=== PATIENT | female | born 1975 | race Caucasian/White ===

== ENCOUNTER 2017-06-30 16:33 | Inpatient (IN) | payer MEDICARE, MEDICAID ==
[2017-06-30] MEDS ORDERED: Ondansetron INJ* 2 MG/ML VIAL IV ONE (18:01)
[2017-06-30 18:26] LABS: Hematocrit 35 % (35-47); Hemoglobin 11.1 g/dl (12.0-16.0); Mean Corpuscular HGB Conc 32 g/dl (31-36); Mean Corpuscular Hemoglobin 24 pg (27-31); Mean Corpuscular Volume 77 fL (80-97); Mean Platelet Volume 9 um3 (7.4-10.4); Red Blood Count 4.58 10^6/ul (4.0-5.4); Red Cell Distribution Width 17 % (10.5-15); White Blood Count 13.1 10^3/ul (3.5-10.8)
[2017-06-30] MEDS: NS 0.9% 1000 ML* 2,000 ML IV ONE ×2 (18:40→20:59)
[2017-06-30 18:42] LABS: ALT 67 U/L (7-52); AST 77 U/L (13-39); Albumin 4.4 g/dL (3.2-5.2); Alkaline Phosphatase 148 U/L (34-104); BUN/Creatinine Ratio 14.4 (8-20); Blood Urea Nitrogen 29 mg/dL (6-24); CO2 Carbon Dioxide 25 mmol/L (22-32); Calcium 10.8 mg/dL (8.6-10.3); Chloride 97 mmol/L (101-111); EGFR African American 34.9 (>60); EGFR Non-African American 27.1 (>60); Globulin 3.6 g/dL (2-4); Glucose 119 mg/dL (70-100); Lipase 276 U/L (11.0-82.0); Magnesium 2.2 mg/dL (1.9-2.7); Sodium 130 mmol/L (133-145)
[2017-06-30 18:43] LABS: Anion Gap 8 mmol/L (2-11); Potassium 2.6 mmol/L (3.5-5.0)
[2017-06-30] MEDS ORDERED: KCL 20 MEQ/100 ML IVPREMIX* 20 MEQ/100 ML BAG IV ONE (18:51)
[2017-06-30] MEDS ORDERED: Potassium Chlor TAB* 20 MEQ TAB.ER PO ONE (18:52)
--- NOTE | 2017-06-30 19:47 | ED ---
Complex/Multi-Sys Presentation - HPI Summary HPI Summary: 42F w/ PMH of bipolar presents with increase confusion and nausea for past 5 days. She states she feels like she has the flu. She is unsure if has headache. She denies any cough, chest pain, or SOB. She has LLQ pain. She denies any dysuria, hematuria, flank pain, urgency, or frequency. She states thoughts are coming to her slower. She states that she sees occasionally floaters in her eye. She has no history of migraines. She denies any fever. Her boyfriend called an ambulance because she has not been acting right. She states she had couple episode of vomiting and diarrhea. She is on lithium. - History Of Current Complaint Chief Complaint: EDGeneral Time Seen by Provider: 06/30/17 16:46 - Allergies/Home Medications Allergies/Adverse Reactions: Allergies Allergy/AdvReac Type Severity Reaction Status Date / Time environmental allergy Allergy Intermediate Eyes Uncoded 02/12/16 15:39 Itchy/Swollen/Red/Watery PMH/Surg Hx/FS Hx/Imm Hx Endocrine/Hematology History: Denies: Hx Diabetes, Hx Thyroid Disease Cardiovascular History: Denies: Hx Hypertension Respiratory History: Denies: Hx Asthma, Hx Chronic Obstructive Pulmonary Disease (COPD) GI History: Denies: Hx Ulcer Musculoskeletal History: Denies: Hx Scoliosis Neurological History: Denies: Hx Headaches Psychiatric History: Reports: Hx Anxiety, Hx Inpatient Treatment, Hx Community Mental Health Tx, Hx Bipolar Disorder Denies: Hx Eating Disorder, Hx of Violent Episodes Against Others - Surgical History Surgery Procedure, Year, and Place: TUBAL LIGATION. CHOLECYSTECTOMY - Immunization History Date of Tetanus Vaccine: UTD per pt Infectious Disease History: No Infectious Disease History: Denies: Hx Clostridium Difficile, Hx Hepatitis, Hx Human Immunodeficiency Virus (HIV), Hx of Known/Suspected MRSA, Hx Shingles, Hx Tuberculosis, Hx Known/ Suspected VRE, Hx Known/Suspected VRSA, History Other Infectious Disease, Traveled Outside the [place] in Last 30 Days - Family History Known Family History: Positive: Hypertension - Social History Alcohol Use: None Substance Use Type: Reports: None Smoking Status (MU): Former Smoker Have You Smoked in the Last Year: No Review of Systems Negative: Fever Negative: Chest Pain Negative: Shortness Of Breath, Cough Positive: Abdominal Pain, Vomiting, Diarrhea, Nausea All Other Systems Reviewed And Are Negative: Yes Physical Exam Triage Information Reviewed: Yes Vital Signs On Initial Exam: Initial Vitals Temp Pulse Resp BP Pulse Ox 98.6 F 93 14 136/84 98 06/30/17 16:41 06/30/17 16:41 06/30/17 16:41 06/30/17 16:41 06/30/17 16:41 Vital Signs Reviewed: Yes Appearance: Positive: Ill-Appearing Skin: Positive: Warm, Dry Head/Face: Positive: Normal Head/Face Inspection Eyes: Positive: Normal, EOMI, MADONNA, Conjunctiva Clear ENT: Positive: Pharynx normal, TMs normal, Other - dry mous Respiratory/Lung Sounds: Positive: Clear to Auscultation, Breath Sounds Present Cardiovascular: Positive: Normal, RRR Abdomen Description: Positive: Soft, Other: - tenderness in LLQ Bowel Sounds: Positive: Present Psychiatric: Positive: Other - flat affect Diagnostics - Vital Signs Vital Signs Temp Pulse Resp BP Pulse Ox 06/30/17 18:50 85 14 99 06/30/17 18:45 83 14 99 06/30/17 18:40 84 17 98 06/30/17 18:35 83 18 98 06/30/17 18:30 83 1 97 06/30/17 18:00 87 123/77 100 06/30/17 17:30 83 119/68 97 06/30/17 17:05 88 5 98 06/30/17 17:04 130/72 06/30/17 16:46 92 13 98 06/30/17 16:45 92 8 98 06/30/17 16:43 136/81 06/30/17 16:41 98.6 F 93 14 136/84 98 - Laboratory Lab Results: Lab Results 06/30/17 06/30/17 Range/Units 18:13 18:13 WBC 13.1 H (3.5-10.8) 10^3/ul RBC 4.58 (4.0-5.4) 10^6/ul Hgb 11.1 L (12.0-16.0) g/dl Hct 35 (35-47) % MCV 77 L (80-97) fL MCH 24 L (27-31) pg MCHC 32 (31-36) g/dl RDW 17 H (10.5-15) % Plt Count 285 (150-450) 10^3/ul MPV 9 (7.4-10.4) um3 Neut % (Auto) 83.0 (38-83) % Lymph % (Auto) 8.3 L (25-47) % Campbell % (Auto) 6.7 (1-9) % Eos % (Auto) 1.3 (0-6) % Baso % (Auto) 0.7 (0-2) % Absolute Neuts (auto) 10.9 H (1.5-7.7) 10^3/ul Absolute Lymphs (auto) 1.1 (1.0-4.8) 10^3/ul Absolute Monos (auto) 0.9 H (0-0.8) 10^3/ul Absolute Eos (auto) 0.2 (0-0.6) 10^3/ul Absolute Basos (auto) 0.1 (0-0.2) 10^3/ul Absolute Nucleated RBC 0 10^3/ul Nucleated RBC % 0 Sodium 130 L (133-145) mmol/L Potassium 2.6 L* (3.5-5.0) mmol/L Chloride 97 L (101-111) mmol/L Carbon Dioxide 25 (22-32) mmol/L Anion Gap 8 (2-11) mmol/L BUN 29 H (6-24) mg/dL Creatinine 2.02 H (0.51-0.95) mg/dL Est GFR ( Amer) 34.9 (>60) Est GFR (Non-Af Amer) 27.1 (>60) BUN/Creatinine Ratio 14.4 (8-20) Glucose 119 H (70-100) mg/dL Calcium 10.8 H (8.6-10.3) mg/dL Magnesium 2.2 (1.9-2.7) mg/dL Total Bilirubin 0.60 (0.2-1.0) mg/dL AST 77 H (13-39) U/L ALT 67 H (7-52) U/L Alkaline Phosphatase 148 H (34-104) U/L C-React Prot High Sens 4.72 mg/L Total Protein 8.0 (6.4-8.9) g/dL Albumin 4.4 (3.2-5.2) g/dL Globulin 3.6 (2-4) g/dL Albumin/Globulin Ratio 1.2 (1-3) Lipase 276 H (11.0-82.0) U/L Beta HCG, Quant < 0.60 mIU/mL Result Diagrams: 06/30/17 18:13 06/30/17 18:13 Lab Statement: Any lab studies that have been ordered have been reviewed, and results considered in the medical decision making process. - CT brain CT Interpretation: No Acute Changes CT Interpretation Completed By: Radiologist abd CT Interpretation: Positive (See Comments) - IMPRESSION: Mildly distended colon with liquid stool. The findings may be secondary to a mild colitis. Hepatic steatosis. Cholecystectomy. CT Interpretation Completed By: Radiologist - EKG No standard instances EKG Rhythm: Sinus Rhythm ST Segment: Normal EKG Interpretation: normal sinus, some T wave changes diffusely Complex Multi-Symp Course/Dx Course Of Treatment: 42F w/ PMH of bipolar presents with increase confusion and nausea for past 5 days. She states she feels like she has the flu. She is unsure if has headache. She denies any cough, chest pain, or SOB. She has LLQ pain. She denies any dysuria, hematuria, flank pain, urgency, or frequency. She states thoughts are coming to her slower. She states that she sees occasionally floaters in her eye. She has no history of migraines. She denies any fever. Her boyfriend called an ambulance because she has not been acting right. She states she had couple episode of vomiting and diarrhea. on exam tender in LLQ. labs wbc 13. K 2.6. ekg t wave changes. Cr and Bun elevated acutely. CT abdomen mildly distended colon with liquid stool. findings secondary to mild colitis. supplement K with a run and oral and gave fluids. lithium came back as 3.47. she has signs of lithium toxicity but is not high enough level that will need dialysis. - Diagnoses Differential Diagnoses/HQI/PQRI: Sepsis, Urinary Tract Infection, Other - diverticulitis, colitis Provider Diagnoses: Colitis, Hypokalemia, Acute renal failure, [place] toxicity - Critical Care Time Critical Care Time: 30-74 min - 35 mins Discharge - Discharge Plan Condition: Stable Disposition: ADMITTED TO [facility]
--- NOTE | 2017-06-30 20:45 | RAD ---
INDICATION: Disoriented. Visual changes. COMPARISON: None TECHNIQUE: Noncontrast axial source images were acquired from the skull base to the vertex. FINDINGS: Ventricles/sulci: The ventricles and cisterns are normal in size and configuration for age. Brain parenchyma: There is no focal parenchymal finding, evidence of intracranial mass, or intracranial mass effect. Intracranial hemorrhage:None. Extra-axial spaces: There are no abnormal extra axial fluid collections or evidence of extra-axial mass. Calvarium: There is no calvarial fracture or other calvarial abnormality. Scalp: There is no evidence of scalp or extracalvarial soft tissue abnormality. Paranasal sinuses/mastoid: The paranasal sinuses and mastoid air cells are clear. Other: None. IMPRESSION: NEGATIVE EXAMINATION
--- NOTE | 2017-06-30 20:50 | RAD ---
INDICATION: Disoriented. Visual changes. Also left lower quadrant pain COMPARISON: CT brain same date TECHNIQUE: Noncontrast axial source images were acquired from the level hemidiaphragms to the symphysis pubis as part of CT imaging for renal stone. Lung bases: The lung bases are clear. Liver: The liver is enlarged with findings of hepatic steatosis. Noncontrast imaging shows no evidence of a hepatic mass or ductal dilatation. Gallbladder: Cholecystectomy. Spleen: The spleen is normal in size. The noncontrast CT appearance is normal. Pancreas: Noncontrast imaging shows no pancreatic mass or ductal dilitation. Adrenal glands: No masses are identified. Kidneys/Bladder: There is no evidence of nephrolithiasis or CT evidence of hydronephrosis. Noncontrast imaging shows no evidence of a renal mass. The bladder is unremarkable.. Adenopathy: There is no evidence of intraperitoneal or retroperitoneal adenopathy. Evaluation is limited without oral contrast. Fluid collections: There are no free or localized fluid collections. Vessels: The aorta and iliac vessels are normal in caliber. There are no significant atherosclerotic changes. The IVC appears normal Pelvic organs: The uterus and adnexa appear normal GI tract: The upper GI tract is unremarkable. The lower GI tract does not contain oral contrast and therefore evaluation is mildly limited. The colon is redundant, mildly distended, and largely fluid-filled and there is no obstruction. Soft tissues: No soft tissue abnormalities of the extraperitoneal abdomen or pelvis are identified. Osseous structures: There are no acute osseous findings. IMPRESSION: Mildly distended colon with liquid stool. The findings may be secondary to a mild colitis. Hepatic steatosis. Cholecystectomy.
[2017-06-30] MEDS ORDERED: NS 0.9% 1000 ML* 1,000 ML IV ONE (21:44)
[2017-06-30] MEDS ORDERED: Ondansetron INJ* 2 MG/ML VIAL IV PRN (21:44)
[2017-06-30] MEDS ORDERED: NS 0.9% 1000 ML* 1,000 ML IV SCH (21:45)
[2017-06-30 22:12] LABS: Troponin I 0.02 ng/mL (<0.04)
[2017-06-30 22:23] LABS: Troponin I 0.03 ng/mL (<0.04)
[2017-06-30 22:40] LABS: Lithium 3.47 mmol/L (0.6-1.2)
[2017-07-01] MEDS: Ciprofloxacin 400MG IVPREMIX(* 400 MG/200 ML BAG IVPB SCH ×2 (01:00→23:46)
--- NOTE | 2017-07-01 03:36 | HP ---
CC: Dr. Elmore * HISTORY AND PHYSICAL: DATE OF ADMISSION: 06/30/17 PRIMARY CARE PROVIDER: Dr. Elmore. ATTENDING PHYSICIAN WHILE IN THE HOSPITAL: Darrius Mo MD * (reported dictated by Efraín Thao NP). CHIEF COMPLAINT: 1. Diarrhea. 2. Confusion. HISTORY OF PRESENT ILLNESS: Ms. Franklin is a 42-year-old female patient. She carries a history of depression, history of suicidal ideation, bipolar, personality disorder, and a history of psychosis. She comes in to our ER today stating that over the last week she has been having diarrhea. She has been having about 5 to 6 episodes a day. No recent antibiotics to her knowledge, but she says her biggest concern is that she just is not acting herself. She knows that her mentation is slower. She notes that she feels confused and she is aware of this. She says that was the main reason why she came in today. She says her appetite has been down, she has not really been eating or drinking as much as she normally does. She came into the ED, it was noted that she had diffuse negative T-waves, but no chest pain. Denied any shortness of breath, there has been no fevers, but she was concerned because of the diarrhea and her mentation so she was evaluated. Noted that she again had a white count. CT scan was concerning for colitis. She appeared to be in acute renal failure. She also is noted to have a low potassium so we were asked to evaluate. She does admit to having some nausea and some vomiting and diarrhea. Because of this we were asked to evaluate for admission. PAST MEDICAL HISTORY: Significant for: 1. Depression. 2. Suicidal ideation. 3. Bipolar. 4. Personality disorder. 5. Psychosis. PAST SURGICAL HISTORY: Denied. HOME MEDICATIONS: According to the list that was obtained include: 1. Hydroxyzine 75 mg at bedtime as needed. 2. Valtrex 500 mg daily. 3. Seroquel 300 mg daily according to Dr. Delgado. In addition to this also lithium carbonate 1500 mg p.o. daily. We need to clarify these meds as she is unsure of these doses. ALLERGIES TO MEDICATIONS: Include no known drug allergies. FAMILY HISTORY: She does not know as she was adopted. SOCIAL HISTORY: She does not smoke, she does not drink. She lives with a boyfriend. She does not appoint a surrogate decision maker at this point. REVIEW OF SYSTEMS: There is no documented fever. She denied having any significant weight change. There was no double vision. There is no ear discharge. She denied having any rhinorrhea. There is no sore throat, no thyroid enlargement. Denied having any chest discomfort. No orthopnea or nocturnal dyspnea. There is no abdominal pain. There was no dysuria, no frequency. There is no seizure. No loss of consciousness. No pruritus and no skin ulceration. Review of 14 systems completed, all others negative. PHYSICAL EXAMINATION GENERAL: At this time, Ms. Franklin is a 42-year-old female patient. She is sitting in the ER stretcher. She does not appear to be in any acute distress. She is awake and she is drowsy. She is alert and oriented to self, place, and time. VITAL SIGNS: Blood pressure 112/98, the pulse of 94, respirations 18, O2 sat of 100%, temperature 98.6. HEENT: Atraumatic and normocephalic. Eyes: EOMs are intact. Sclerae is anicteric, not pale. Throat, oral mucosa appears to be dry. No oropharyngeal erythema. NECK: Supple. LUNGS: Clear to auscultation bilaterally. No wheezes, rales, or rhonchi. HEART: Sounds S1 and S2. Regular, rate, and rhythm. No murmurs, rubs, or gallops. ABDOMEN: Soft, flat, and nontender. Bowel sounds are present. EXTREMITIES: Pulses are 2+ throughout. She is able to move all 4 extremities with 5/5 strength. NEUROLOGIC: She is drowsy, but she knows her name, she knows the place, she knows the month; but again slow to respond. She notable knows that she is confused. Her emergency room clerk was equal. Her tongue was midline. She had no gross obvious focal deficits. SKIN: Intact. LABORATORY DATA: WBC of 13.1, RBC of 4.58, hemoglobin 11.1, hematocrit 35, platelet count 285. Sodium was 130, potassium 2.6, chloride of 97, bicarb 25, BUN of 29, creatinine 2.02, glucose 119, calcium 10.8, mag 2.2, AST 77, ALT 67, alk phos 148, troponin pending. The beta hCG was negative. Lipase 276. She did have a brain CT obtained today which revealed a negative exam. She had an abdominal and pelvis CT obtained today which revealed mildly distended colon with liquid stool. Findings may be secondary to mild colitis. EKG today shows, I do not have a previous for comparison, but it does show a normal sinus rhythm with diffuse T-wave flattening. Her QTc was 45. Old medical records reviewed. ASSESSMENT AND PLAN: Ms. Franklin is a 42-year-old female patient with a well documented psychiatric history coming into the ER today with complaints of nausea, vomiting, and diarrhea. On evaluation there was concern because she was found to have again hypokalemia, acute renal failure, and we were asked to evaluate for admission. She was admitted under observation status for: 1. Altered mental status and nausea, vomiting, and diarrhea. I am concerned that she may have lithium toxicity now. Whether this came before the nausea, vomiting, and diarrhea and she had a GI upset, which caused her to be dehydrated worsening her renal function, thus decreasing the clearance of the lithium is unclear. But I do think we need a lithium level. She certainly does have sluggishness, a little bit of confusion which can come with lithium toxicity. But I think the lithium level, if it is greater than 4 or 5, we will need to obviously again touch with Dr. Barraza. She may need dialysis. She is breathing currently. She is awake. She is protecting her airways. She does not appear to be in coma, so we will follow her, get frequent neuro checks. We will hydrate her aggressively and will continue to follow her closely. We will get neuro checks frequently. 2. Colitis. At this point, she may have an infectious colitis. I am setting up a C. diff stool study. I am going to put her on Cipro and Flagyl and will continue to follow her closely and these medications will be renally dosed. 3. Depression. I am going to hold her meds in the setting of this altered mental status. 4. History of bipolar. Again holding the lithium, waiting on lithium level. 5. History of personality disorder and psychosis. Again holding meds at this point. We will restart them when she is more stable. We may need input from Psychiatry at some point. We may need to consult them, but at this point we will need to again await that lithium level. I am holding all of her psych meds until her mentation clears. 6. DVT prophylaxis. She will be placed on heparin subcu. 7. Code status. Full code. 8. Fluids, electrolytes, and nutrition. She can have a clear liquid diet. TIME SPENT: Time spent on this admission 60 minutes, greater than half the time was spent [id number] with the patient obtaining my history and physical. Other time spent going over the plan of care with the patient and implementing the plan of care. I discussed the plan of care with my attending Dr. Mo who is in agreement. EFRAÍN THAO, YARON [id number]/CPS #: [id number] VINOD
[2017-07-01] MEDS: Heparin VIAL(*) 5000 UNITS/ML VIAL (FIVE THOUSAND) SUBCUT SCH ×4 (03:55→20:25)
[2017-07-01 05:32] LABS: Hematocrit 29 % (35-47); Hemoglobin 9.2 g/dl (12.0-16.0); Mean Corpuscular HGB Conc 32 g/dl (31-36); Mean Corpuscular Hemoglobin 25 pg (27-31); Mean Corpuscular Volume 77 fL (80-97); Mean Platelet Volume 9 um3 (7.4-10.4); Red Blood Count 3.74 10^6/ul (4.0-5.4); Red Cell Distribution Width 17 % (10.5-15); White Blood Count 10.8 10^3/ul (3.5-10.8)
[2017-07-01 05:46] LABS: BUN/Creatinine Ratio 14.8 (8-20); Calcium 8.8 mg/dL (8.6-10.3); EGFR African American 47.4 (>60); EGFR Non-African American 36.8 (>60); Potassium 2.8 mmol/L (3.5-5.0)
[2017-07-01 05:59] LABS: Lithium 3.44 mmol/L (0.6-1.2)
[2017-07-01] MEDS: KCL 10 MEQ/50 ML IVPREMIX* 10 MEQ/50 ML BAG IV SCH ×5 (05:59→11:29)
[2017-07-01] MEDS: metroNIDAZOLE TAB* 250 MG PO SCH ×3 (08:49→20:25)
[2017-07-01 10:32] LABS: Urine Bacteria Absent (Absent); Urine Bilirubin Negative (Negative); Urine Glucose Negative (Negative); Urine Nitrite Positive (Negative)
[2017-07-01] MEDS ORDERED: KCL 10 MEQ/50 ML IVPREMIX* 10 MEQ/50 ML BAG ONE (11:27)
--- NOTE | 2017-07-01 11:47 | PN ---
Subjective Date of Service: 07/01/17 Interval History: Patient seen and examined at bedside. Patient states diarrhea improved. She is having hallucinations. Patient unable to provide full history but per boyfriend she had 2-3 of nausea/vomiting/diarrhea without much PO intake and continued her regular medications. She denies N/V at this time and would like to try a regular diet. Family History: Unchanged from Admission Social History: Unchanged from Admission Past Medical History: Unchanged from Admission Objective Active Medications: Heparin Sodium (Porcine) (Heparin Vial(*)) 5,000 units SUBCUT Q8HR MAGO Ciprofloxacin/Dextrose (Cipro 400 Mg Ivpremix(*)) 400 mg in 200 mls @ 200 mls/ hr IVPB Q24H MAGO Sodium Chloride (Ns 0.9% 1000 Ml*) 1,000 mls @ 150 mls/hr IV PER RATE MAGO Metronidazole (Flagyl Tab*) 500 mg PO TID MAGO Ondansetron HCl (Zofran Inj*) 4 mg IV Q6H PRN Vital Signs Temp Pulse Resp BP Pulse Ox 98.9 F 78 16 132/68 99 07/01/17 08:21 07/01/17 08:21 07/01/17 08:21 07/01/17 08:21 07/01/17 08:49 Oxygen Devices in Use Now: None Appearance: sitting up in bed, NAD Eyes: No Scleral Icterus, PERRLA Ears/Nose/Mouth/Throat: NL Teeth, Lips, Gums, - - mucous membranes dry Neck: NL Appearance and Movements; NL JVP Respiratory: Symmetrical Chest Expansion and Respiratory Effort, Clear to Auscultation Cardiovascular: NL Sounds; No Murmurs; No JVD, RRR Abdominal: NL Sounds; No Tenderness; No Distention Extremities: No Edema Skin: No Rash or Ulcers Neurological: NL Sensation, NL Muscle Strength and Tone, - - AO to self only; intermittent hallucinations Lines/Tubes/Other Access: Clean, Dry and Intact Peripheral IV Result Diagrams: 07/01/17 05:07 07/01/17 05:07 Additional Lab and Data: . Assess/Plan/Problems-Billing Pt is a 42 y/o F w/ PMH significant for depression, bipolar, personality disorder who presented to the ER on 06/29w/ confusion and 1 week hx of diarrhea found to be in acute renal failure with lithium toxicity. - Patient Problems (1) [place] toxicity Comment: [place] level still 3.4 but Cr improving Continue aggressive IV hydration. Continue neuro checks and telemetry monitoring. (2) Acute renal failure Comment: Cr improving and now 1.5. Continue aggressive IVF until tomorrow morning. (3) Colitis Comment: Continue Cipro and Flagyl. CDiff negative. This could be viral gastroenteritis. Will check for salmonella and giardia. (4) Hypokalemia due to loss of potassium Comment: Still receiving repletement ordered overnight. Will check KCl when complete and replete with PO KCl. (5) Depression Comment: Hold seroquel for now unitl mental status improves. (6) Bipolar 1 disorder Comment: Hold all meds for now until mental status improves. (7) DVT prophylaxis Comment: Heparin SQ (8) Full code status
[2017-07-01 12:01] LABS: Albumin 3.5 g/dL (3.2-5.2); Direct Bilirubin 0.2 mg/dL (0.03-0.18); Globulin 2.7 g/dL (2-4); Indirect Bilirubin 0.3 mg/dL (0.3-1.0); Total Bilirubin 0.5 mg/dL (0.2-1.0); Total Protein 6.2 g/dL (6.4-8.9)
[2017-07-01] MEDS: NS 0.9% 1000 ML* 1,000 ML IV SCH ×2 (13:42→20:25)
[2017-07-01] MEDS: Potassium Chloride LIQUID* 20 MEQ PACKET PO SCH ×2 (18:38→23:46)
[2017-07-02] MEDS: Potassium Chloride LIQUID* 20 MEQ PACKET PO SCH (02:50)
[2017-07-02] MEDS: Heparin VIAL(*) 5000 UNITS/ML VIAL (FIVE THOUSAND) SUBCUT SCH ×3 (05:18→22:22)
[2017-07-02 05:51] LABS: Hematocrit 29 % (35-47); Hemoglobin 9.2 g/dl (12.0-16.0); Mean Corpuscular HGB Conc 32 g/dl (31-36); Mean Corpuscular Hemoglobin 25 pg (27-31); Mean Corpuscular Volume 78 fL (80-97); Mean Platelet Volume 8 um3 (7.4-10.4); Red Blood Count 3.73 10^6/ul (4.0-5.4); Red Cell Distribution Width 17 % (10.5-15); White Blood Count 8.7 10^3/ul (3.5-10.8)
[2017-07-02 06:09] LABS: BUN/Creatinine Ratio 8.1 (8-20); Calcium 8.9 mg/dL (8.6-10.3); EGFR African American 61.3 (>60); EGFR Non-African American 47.7 (>60); Potassium 3.4 mmol/L (3.5-5.0)
[2017-07-02 06:31] LABS: Lithium 2.74 mmol/L (0.6-1.2)
[2017-07-02] MEDS: metroNIDAZOLE TAB* 250 MG PO SCH ×2 (08:01→13:58)
[2017-07-02] MEDS: Ondansetron INJ* 2 MG/ML VIAL IV PRN ×2 (15:15→23:04)
--- NOTE | 2017-07-02 16:00 | PN ---
Subjective Date of Service: 07/02/17 Interval History: Mr. Wharton is able to follow all commands and answer with one word answers very slowly. She denies complaint today but is minimally interactive. Family History: Unchanged from Admission Social History: Unchanged from Admission Past Medical History: Unchanged from Admission Objective Active Medications: Heparin Sodium (Porcine) (Heparin Vial(*)) 5,000 units SUBCUT Q8HR MAGO Ciprofloxacin/Dextrose (Cipro 400 Mg Ivpremix(*)) 400 mg in 200 mls @ 200 mls/ hr IVPB Q24H MAGO Sodium Chloride (Ns 0.9% 1000 Ml*) 1,000 mls @ 150 mls/hr IV PER RATE MAGO Metronidazole (Flagyl Tab*) 500 mg PO TID MAGO Ondansetron HCl (Zofran Inj*) 4 mg IV Q4H PRN Vital Signs: Temp Pulse Resp BP Pulse Ox 98.4 F 78 16 116/61 99 07/02/17 11:58 07/02/17 11:58 07/02/17 11:58 07/02/17 11:58 07/02/17 11:58 Oxygen Devices in Use Now: None Appearance: Female lying in bed in NAD Eyes: No Scleral Icterus Ears/Nose/Mouth/Throat: Mucous Membranes Moist Neck: NL Appearance and Movements; NL JVP, Trachea Midline Respiratory: Symmetrical Chest Expansion and Respiratory Effort, Clear to Auscultation Cardiovascular: NL Sounds; No Murmurs; No JVD, - - +1 edema Abdominal: NL Sounds; No Tenderness; No Distention Lymphatic: No Cervical Adenopathy Skin: No Rash or Ulcers Neurological: - - Alert, answers with one word answers very slowly, follows all commands, weak but strength equal in B UE and LEs Nutrition: Taking PO's Result Diagrams: 07/02/17 05:35 07/02/17 05:35 Additional Lab and Data: . Assess/Plan/Problems-Billing Pt is a 42 y/o F w/ PMH significant for depression, bipolar, personality disorder who presented to the ER on 06/29 w/ confusion and 1 week hx of diarrhea found to be in acute renal failure with lithium toxicity. - Patient Problems (1) [place] toxicity Comment: - Patient's mentation remains very slow but she is able to respond appropriately. - [place] level still 2.7 but Cr improving - Continue aggressive IV hydration. - Continue telemetry monitoring and q4 neuro checks. (2) Colitis Comment: - Resolved. - Stop Cipro and Flagyl. CDiff negative. Suspect viral gastroenteritis or could be related to lithium toxicity itself. (3) Acute renal failure Comment: - Cr improving and now 1.24. - Continue aggressive IVF until tomorrow morning. (4) Hypokalemia due to loss of potassium Comment: Still receiving repletement ordered overnight. Will check KCl when complete and replete with PO KCl. (5) Anemia Comment: - Hgb down to 9. - Suspect dilutional with aggressive IV fluids since arrival. - Recheck in AM. Stool occult blood pending. Check iron, folate and vit B12. (6) Bipolar 1 disorder Comment: - Hold all meds for now until mental status improves. (7) Depression Comment: - Hold seroquel for now until mental status improves. (8) DVT prophylaxis Comment: Heparin SQ (9) Full code status Status and Disposition: Inpatient with expected LOS > 2 days. Anticipate discharge to home when medically stable.
[2017-07-02] MEDS ORDERED: Potassium Chloride LIQUID* 20 MEQ PACKET PO ONE (16:03)
[2017-07-02] MEDS ORDERED: Potassium Chloride LIQUID* 20 MEQ PACKET ONE (16:16)
[2017-07-02] MEDS: NS 0.9% 1000 ML* 1,000 ML IV SCH (16:20)
[2017-07-02 16:56] LABS: Ferritin 13.2 ng/mL (11-307)
[2017-07-02 16:59] LABS: Folate 18.27 ng/mL (>3.99)
[2017-07-02] MEDS: PROCHLORPERAZINE INJ 5 MG/ML 2 ML VIAL IV PRN (17:29)
[2017-07-02] MEDS ORDERED: QUEtiapine TAB* 25 MG PO ONE (21:56)
[2017-07-02] MEDS ORDERED: hydrOXYzine HCL TAB* 25 MG PO ONE (21:58)
[2017-07-03] MEDS: NS 0.9% 1000 ML* 1,000 ML IV SCH ×3 (00:06→13:25)
[2017-07-03] MEDS: Heparin VIAL(*) 5000 UNITS/ML VIAL (FIVE THOUSAND) SUBCUT SCH ×3 (05:36→22:00)
[2017-07-03 05:37] LABS: Hematocrit 29 % (35-47); Hemoglobin 9.1 g/dl (12.0-16.0); Mean Corpuscular HGB Conc 32 g/dl (31-36); Mean Corpuscular Hemoglobin 25 pg (27-31); Mean Corpuscular Volume 77 fL (80-97); Mean Platelet Volume 8 um3 (7.4-10.4); Red Cell Distribution Width 17 % (10.5-15); White Blood Count 8.3 10^3/ul (3.5-10.8)
[2017-07-03 05:58] LABS: BUN/Creatinine Ratio 3.7 (8-20); Calcium 9.4 mg/dL (8.6-10.3); EGFR African American 71.1 (>60); EGFR Non-African American 55.3 (>60); Potassium 3.6 mmol/L (3.5-5.0)
[2017-07-03 06:08] LABS: Lithium 1.81 mmol/L (0.6-1.2)
[2017-07-03] MEDS: Ondansetron INJ* 2 MG/ML VIAL IV PRN ×2 (08:12→12:17)
[2017-07-03] MEDS ORDERED: Potassium Chloride LIQUID* 20 MEQ PACKET PO ONE (16:03)
[2017-07-03] MEDS: PROCHLORPERAZINE INJ 5 MG/ML 2 ML VIAL IV PRN (16:48)
[2017-07-03] MEDS ORDERED: hydrOXYzine HCL TAB* 25 MG PO ONE (17:11)
[2017-07-03] MEDS ORDERED: NS 0.9% 1000 ML* 1,000 ML IV SCH (17:38)
--- NOTE | 2017-07-03 17:38 | PN ---
Subjective Date of Service: 07/03/17 Interval History: Ms. Wharton remains slow to respond and tremulous. She has also had some nausea and vomiting today. She denies other complaint including chest pain, SOB, or abdominal pain. She has had some minimal diarrhea, two small bouts x 2. Family History: Unchanged from Admission Social History: Unchanged from Admission Past Medical History: Unchanged from Admission Objective Active Medications: Ferrous Sulfate (Ferrous Sulfate Tab*) 325 mg PO DAILY MAGO Heparin Sodium (Porcine) (Heparin Vial(*)) 5,000 units SUBCUT Q8HR MAGO Sodium Chloride (Ns 0.9% 1000 Ml*) 1,000 mls @ 150 mls/hr IV PER RATE MAGO Ondansetron HCl (Zofran Inj*) 4 mg IV Q4H PRN Pantoprazole Sodium (Protonix Iv*) 40 mg IV Q24H MAGO Prochlorperazine Edisylate (Compazine Inj*) 5 mg IV Q6H PRN Vital Signs 07/02/17 07/02/17 07/02/17 19:29 19:30 20:52 Temperature 98.5 F Pulse Rate 103 Respiratory 18 22 Rate Blood Pressure 117/103 (mmHg) O2 Sat by Pulse 98 99 Oximetry 07/02/17 07/02/17 07/03/17 21:00 23:39 00:00 Temperature 98.7 F Pulse Rate 85 Respiratory 16 Rate Blood Pressure 125/62 134/70 (mmHg) O2 Sat by Pulse 99 98 Oximetry 07/03/17 07/03/17 07/03/17 04:02 07:21 07:27 Temperature 99.1 F 98.7 F Pulse Rate 86 86 Respiratory 16 20 18 Rate Blood Pressure 130/69 150/90 (mmHg) O2 Sat by Pulse 100 99 Oximetry 07/03/17 07/03/17 11:19 15:21 Temperature 97.9 F 98.6 F Pulse Rate 87 86 Respiratory 18 19 Rate Blood Pressure 124/73 135/83 (mmHg) O2 Sat by Pulse 99 99 Oximetry Oxygen Devices in Use Now: None Appearance: Female sitting up in chair in NAD Eyes: No Scleral Icterus Ears/Nose/Mouth/Throat: Mucous Membranes Moist Neck: Trachea Midline Respiratory: Symmetrical Chest Expansion and Respiratory Effort, Clear to Auscultation Cardiovascular: NL Sounds; No Murmurs; No JVD, No Edema Abdominal: NL Sounds; No Tenderness; No Distention Lymphatic: No Cervical Adenopathy Extremities: No Edema Skin: No Rash or Ulcers Neurological: - - Alert, oriented, intentional tremor, slow to respond, will say 1-2 words Nutrition: Taking PO's Result Diagrams: 07/03/17 05:00 07/03/17 05:00 Additional Lab and Data: . Assess/Plan/Problems-Billing Pt is a 42 y/o F w/ PMH significant for depression, bipolar, personality disorder who presented to the ER on 06/29 w/ confusion and 1 week hx of diarrhea found to be in acute renal failure with lithium toxicity. - Patient Problems (1) [place] toxicity Comment: - Patient's mentation remains very slow but she is able to respond appropriately. - [place] level 1.8. - Continue IV fluids while she is nauseus and has poor oral intake. - Plan for psych eval tomorrow. (2) Colitis Comment: - Resolved. - Stop Cipro and Flagyl. CDiff negative. Suspect viral gastroenteritis or could be related to lithium toxicity itself. (3) Acute renal failure Comment: - Resolved. (4) Hypokalemia due to loss of potassium Comment: - Resolved. (5) Anemia Comment: - Hgb down to 9. - Suspect dilutional with aggressive IV fluids since arrival. - Stool occult blood pending. Mild iron deficiency, started supplementation. (6) Bipolar 1 disorder Comment: - Patient has had severe anxiety at night. Continue seroquel and hydroxyzine prn tonight and await further recommendations from psychiatry tomorrow regarding resuming meds going forward. (7) DVT prophylaxis Comment: Heparin SQ (8) Full code status Status and Disposition: Inpatient with expected LOS > 2 days. Anticipate discharge to home when medically stable.
[2017-07-03] MEDS: Pantoprazole IV* 40 MG IV SCH (17:56)
[2017-07-03] MEDS: QUEtiapine TAB* 25 MG PO PRN (22:00)
[2017-07-04] MEDS: Heparin VIAL(*) 5000 UNITS/ML VIAL (FIVE THOUSAND) SUBCUT SCH ×3 (05:27→21:04)
[2017-07-04] MEDS: Ferrous Sulfate TAB* 325 MG PO SCH (07:57)
[2017-07-04] MEDS: PROCHLORPERAZINE INJ 5 MG/ML 2 ML VIAL IV PRN ×3 (08:06→20:50)
--- NOTE | 2017-07-04 10:26 | PN ---
Subjective Date of Service: 07/04/17 Interval History: Ms. Franklin and her sister feel that she is doing a bit better today. She has had no nausea or vomiting. She has seemed at times a bit more communicative though she remains slow to respond, weak, and tremulous. She denies any specific complaint. Family History: Unchanged from Admission Social History: Unchanged from Admission Past Medical History: Unchanged from Admission Objective Active Medications: Ferrous Sulfate (Ferrous Sulfate Tab*) 325 mg PO DAILY MAGO Heparin Sodium (Porcine) (Heparin Vial(*)) 5,000 units SUBCUT Q8HR MAGO Ondansetron HCl (Zofran Inj*) 4 mg IV Q4H PRN Pantoprazole Sodium (Protonix Iv*) 40 mg IV Q24H MAGO Prochlorperazine Edisylate (Compazine Inj*) 5 mg IV Q6H PRN Quetiapine Fumarate (Seroquel Tab*) 50 mg PO BEDTIME PRN Vital Signs: Temp Pulse Resp BP Pulse Ox 98.2 F 82 20 146/86 98 07/04/17 07:20 07/04/17 07:20 07/04/17 08:00 07/04/17 07:20 07/04/17 07:20 Oxygen Devices in Use Now: None Appearance: Female lying in bed in NAD Eyes: No Scleral Icterus Ears/Nose/Mouth/Throat: Mucous Membranes Moist Neck: Trachea Midline Respiratory: Symmetrical Chest Expansion and Respiratory Effort, Clear to Auscultation Cardiovascular: NL Sounds; No Murmurs; No JVD, - Abdominal: NL Sounds; No Tenderness; No Distention Lymphatic: No Cervical Adenopathy Skin: No Rash or Ulcers Neurological: NL Muscle Strength and Tone, - - tremor noted, generalized weakness, slow to respond but oriented Nutrition: Taking PO's Result Diagrams: 07/03/17 05:00 07/03/17 05:00 Additional Lab and Data: . Microbiology and Other Data: Microbiology 07/03/17 18:39 Stool Occult Blood (JANELL) - Final Stool Assess/Plan/Problems-Billing Pt is a 42 y/o F w/ PMH significant for depression, bipolar, personality disorder who presented to the ER on 06/29 w/ confusion and 1 week hx of diarrhea found to be in acute renal failure with lithium toxicity. - Patient Problems (1) [place] toxicity Comment: - Small improvement today in mentation. - [place] level 1.05. - D/C IV fluids. - Psych consultation ordered. (2) Colitis Comment: - Resolved. - Stop Cipro and Flagyl. CDiff negative. Suspect viral gastroenteritis or could be related to lithium toxicity itself. (3) Acute renal failure Comment: - Resolved. (4) Hypokalemia due to loss of potassium Comment: - Resolved. (5) Anemia Comment: - Hgb down to 9. - Suspect dilutional with aggressive IV fluids since arrival. - Stool occult blood negative. Mild iron deficiency, started supplementation. (6) Bipolar 1 disorder Comment: - Psych consult pending re: medication adjustments. (7) DVT prophylaxis Comment: - Heparin SQ (8) Full code status Status and Disposition: Inpatient with expected LOS > 2 days. Anticipate discharge to home when medically stable.
[2017-07-04] MEDS: Artificial Tears* 15 ML BTL BOTH EYES PRN (13:19)
[2017-07-04] MEDS: Pantoprazole IV* 40 MG IV SCH (17:55)
[2017-07-04] MEDS: QUEtiapine TAB* 25 MG PO PRN (20:41)
[2017-07-04] MEDS: Acetaminophen TAB* 325 MG PO PRN (20:51)
[2017-07-05 05:56] LABS: Hematocrit 28 % (35-47); Hemoglobin 8.9 g/dl (12.0-16.0); Mean Corpuscular HGB Conc 32 g/dl (31-36); Mean Corpuscular Hemoglobin 25 pg (27-31); Mean Corpuscular Volume 77 fL (80-97); Mean Platelet Volume 9 um3 (7.4-10.4); Red Blood Count 3.61 10^6/ul (4.0-5.4); Red Cell Distribution Width 18 % (10.5-15); White Blood Count 7.5 10^3/ul (3.5-10.8)
[2017-07-05] MEDS: Acetaminophen TAB* 325 MG PO PRN ×3 (05:57→18:44)
[2017-07-05] MEDS: Heparin VIAL(*) 5000 UNITS/ML VIAL (FIVE THOUSAND) SUBCUT SCH ×3 (05:58→22:15)
[2017-07-05] MEDS: Ferrous Sulfate TAB* 325 MG PO SCH (10:27)
[2017-07-05] MEDS: PROCHLORPERAZINE INJ 5 MG/ML 2 ML VIAL IV PRN ×2 (10:33→18:36)
--- NOTE | 2017-07-05 11:59 | PN ---
Subjective Date of Service: 07/05/17 Interval History: Ms. Wharton and her family think that she continues to have waxing and waning improvement in her symptoms. She continues to have a tremor and is slow to respond. She had nausea and vomiting x 1 yesterday. She denies other complaint including chest pain or SOB. Family History: Unchanged from Admission Social History: Unchanged from Admission Past Medical History: Unchanged from Admission Objective Active Medications: Acetaminophen (Tylenol Tab*) 650 mg PO Q6H PRN Ferrous Sulfate (Ferrous Sulfate Tab*) 325 mg PO DAILY MAGO Heparin Sodium (Porcine) (Heparin Vial(*)) 5,000 units SUBCUT Q8HR MAGO Ondansetron HCl (Zofran Inj*) 4 mg IV Q4H PRN Pantoprazole Sodium (Protonix Iv*) 40 mg IV Q24H MAGO Polyvinyl Alcohol (Polyvinyl Alcohol 1.4% Opth*) 1 drop BOTH EYES Q2H PRN Prochlorperazine Edisylate (Compazine Inj*) 5 mg IV Q6H PRN Quetiapine Fumarate (Seroquel Tab*) 50 mg PO BEDTIME PRN Vital Signs: Temp Pulse Resp BP Pulse Ox 98.4 F 82 18 133/78 97 07/05/17 07:43 07/05/17 07:43 07/05/17 08:00 07/05/17 07:43 07/05/17 07:43 Oxygen Devices in Use Now: None Appearance: Female sitting up in bed in NAD Eyes: No Scleral Icterus Ears/Nose/Mouth/Throat: Mucous Membranes Moist Neck: Trachea Midline Respiratory: Symmetrical Chest Expansion and Respiratory Effort, Clear to Auscultation Cardiovascular: NL Sounds; No Murmurs; No JVD, No Edema Abdominal: NL Sounds; No Tenderness; No Distention Lymphatic: No Cervical Adenopathy Extremities: No Edema Skin: No Rash or Ulcers Neurological: Alert and Oriented x 3, - - Tremor, slow to respond verbally or with movement Nutrition: Taking PO's Result Diagrams: 07/05/17 05:10 07/03/17 05:00 Additional Lab and Data: . Microbiology and Other Data: Microbiology 07/03/17 18:39 Stool Occult Blood (JANELL) - Final Stool Assess/Plan/Problems-Billing Pt is a 42 y/o F w/ PMH significant for depression, bipolar, personality disorder who presented to the ER on 06/29 w/ confusion and 1 week hx of diarrhea found to be in acute renal failure with lithium toxicity. - Patient Problems (1) [place] toxicity Comment: - Symptoms continue to wax and wane though seem to be improving somewhat overall. - [place] level 1.05. - D/C IV fluids. - Psych consultation ordered. (2) Anemia Comment: - Hgb down to 9. - Suspect dilutional with aggressive IV fluids since arrival. - Stool occult blood negative. Mild iron deficiency, started supplementation. (3) Bipolar 1 disorder Comment: - Psych consult pending re: medication adjustments. (4) DVT prophylaxis Comment: - Heparin SQ (5) Full code status Status and Disposition: Inpatient with expected LOS > 2 days. Anticipate discharge to home when medically stable.
--- NOTE | 2017-07-05 15:02 | CONSULT ---
Identification - Patient Identification Reason for Psychiatric Consultation: Other - [place] toxicity -: Patient is a 42 year old, with h/o Bipolar d/o, admitted on 07/01/17 on medical floor due to [place] toxicity. Seen today on bed side patient was able to hold a normal conversation for a short period and then appeared to be over whelmed with emotion, severe anxiety and tremulousness. Her mother and sister in the room provided collateral history of a long h/o Bipolar d/o in good control with [place], seroquel and Hydroxyzine up until couple weeks ago when she became increasingly confused with nausia and vomiting noticed by her boyfriend and she was brought to the ED where she was found to be toxic on [place] with acute renal failure. She hav diarrhea x 5 days prior to that. Her renal failure has improved but still medically not stable enough to be discharged. Per her sister Ms. Franklin has been exibiting alternate moments of euphora with loughing and giggling followed by crying and severe anxiety. She hasn't been sleeping well. - U Identification Employment Status: Disabled Prior Psychiatric Diagnosis: Bipolar d/o History - Objective HPI: Patient is a 42 year old, with h/o Bipolar d/o, admitted on 07/01/17 on medical floor due to [place] toxicity. Seen today on bed side patient was able to hold a normal conversation for a short period and then appeared to be over whelmed with emotion, severe anxiety and tremulousness. Her mother and sister in the room provided collateral history of a long h/o Bipolar d/o in good control with [place], seroquel and Hydroxyzine up until couple weeks ago when she became increasingly confused with nausia and vomiting noticed by her boyfriend and she was brought to the ED where she was found to be toxic on [place] with acute renal failure. She hav diarrhea x 5 days prior to that. Her renal failure has improved but still medically not stable enough to be discharged. Per her sister Ms. Franklin has been exibiting alternate moments of euphora with loughing and giggling followed by crying and severe anxiety. She hasn't been sleeping well. Past Medical History: Obesity. 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 Lab Results: Laboratory Tests 07/01/17 07/02/17 07/02/17 16:33 05:35 05:35 WBC 8.7 RBC 3.73 L Hgb 9.2 L Hct 29 L MCV 78 L MCH 25 L MCHC 32 RDW 17 H Plt Count 223 MPV 8 Neut % (Auto) 67.8 Lymph % (Auto) 20.3 L [place] % (Auto) 8.0 Eos % (Auto) 3.0 Baso % (Auto) 0.9 Absolute Neuts (auto) 5.9 Absolute Lymphs (auto) 1.8 Absolute Monos (auto) 0.7 Absolute Eos (auto) 0.3 Absolute Basos (auto) 0.1 Absolute Nucleated RBC 0 Nucleated RBC % 0 Sodium 134 Potassium 2.8 L 3.4 L Chloride 109 Carbon Dioxide 19 L Anion Gap 6 BUN 10 Creatinine 1.24 H Est GFR ( Amer) 61.3 Est GFR (Non-Af Amer) 47.7 BUN/Creatinine Ratio 8.1 Glucose 133 H Calcium 8.9 Iron 29 L TIBC 440 % Saturation 7 L Unsat Iron Binding 411 Ferritin 13.2 Vitamin B12 521 Folate 18.27 [place] 2.74 H* 07/03/17 07/03/17 07/04/17 05:00 05:00 09:25 WBC 8.3 RBC 3.70 L Hgb 9.1 L Hct 29 L MCV 77 L MCH 25 L MCHC 32 RDW 17 H Plt Count 216 MPV 8 Neut % (Auto) 64.4 Lymph % (Auto) 23.9 L [place] % (Auto) 9.1 H Eos % (Auto) 1.4 Baso % (Auto) 1.2 Absolute Neuts (auto) 5.4 Absolute Lymphs (auto) 2.0 Absolute Monos (auto) 0.8 Absolute Eos (auto) 0.1 Absolute Basos (auto) 0.1 Absolute Nucleated RBC 0 Nucleated RBC % 0 Sodium 140 Potassium 3.6 Chloride 112 H Carbon Dioxide 23 Anion Gap 5 BUN 4 L Creatinine 1.09 H Est GFR ( Amer) 71.1 Est GFR (Non-Af Amer) 55.3 BUN/Creatinine Ratio 3.7 L Glucose 159 H Calcium 9.4 Iron TIBC % Saturation Unsat Iron Binding Ferritin Vitamin B12 Folate [place] 1.81 H* 1.05 07/05/17 05:10 WBC 7.5 RBC 3.61 L Hgb 8.9 L Hct 28 L MCV 77 L MCH 25 L MCHC 32 RDW 18 H Plt Count 221 MPV 9 Neut % (Auto) 49.3 Lymph % (Auto) 38.4 [place] % (Auto) 6.1 Eos % (Auto) 5.1 Baso % (Auto) 1.1 Absolute Neuts (auto) 3.7 Absolute Lymphs (auto) 2.9 Absolute Monos (auto) 0.5 Absolute Eos (auto) 0.4 Absolute Basos (auto) 0.1 Absolute Nucleated RBC 0 Nucleated RBC % 0.1 Sodium Potassium Chloride Carbon Dioxide Anion Gap BUN Creatinine Est GFR ( Amer) Est GFR (Non-Af Amer) BUN/Creatinine Ratio Glucose Calcium Iron TIBC % Saturation Unsat Iron Binding Ferritin Vitamin B12 Folate [place] Exam Appearance: Obese Hygiene: Normal Grooming: Fairly Well Kept Psychomotor Activities: Abnormal-Increased Exhibits Abnormal Movement: Yes Attitude and Relatedness: Needy Eye Contact: Fair - Speech Quality: Pressured Latencies: Short Quantity: Terse Patient's Decription of Mood: "Anxious" Observed Affect: Depressed Affect Consistent with: Dysphoria Patient's Thought Process: Impoverished Thought Content: No Passive Wish, No Suicidal Planning, No Homicidal Ideation, No Paranoid Ideation Experiencing Hallucinations: No, Sensorium is Clear Type of Hallucinations: Visual: No, Auditory: No, Command: No Level of Consciousness: Alert Orientation: Yes Intact, Yes Orientated to Time, Yes Orientated to Place, Yes Orientated to Person Impulse Control: Intact Insight and Judgement: Fair Impression - Impression Merits Inpatient Hospitalization: Yes - [place] [facility] Mental Illness: Unspecified Bipolar D/O - [place] [facility] Medical Illness: S/P [place] [employer]ox[employer]. Obisity Problem List - U Problems Type of Problem: Mood Status of Problem: Active Type of Problem: Medication Management Status of Problem: Active Plan - Treatment Plan Continued Medication Management: Continue Outpt Medication Medications: Current Medications Acetaminophen (Tylenol Tab*) 650 mg PO Q6H PRN PRN Reason: PAIN Last Admin: 07/05/17 05:57 Dose: 650 mg Ferrous Sulfate (Ferrous Sulfate Tab*) 325 mg PO DAILY [facility] Last Admin: 07/05/17 10:27 Dose: 325 mg Heparin Sodium (Porcine) (Heparin Vial(*)) 5,000 units SUBCUT Q8HR MAGO Last Admin: 07/05/17 13:49 Dose: 5,000 units Ondansetron HCl (Zofran Inj*) 4 mg IV Q4H PRN PRN Reason: NAUSEA Last Admin: 07/03/17 12:17 Dose: 4 mg Pantoprazole Sodium (Protonix Iv*) 40 mg IV Q24H MAGO Last Admin: 07/04/17 17:55 Dose: 40 mg Polyvinyl Alcohol (Polyvinyl Alcohol 1.4% Opth*) 1 drop BOTH EYES Q2H PRN PRN Reason: DRY EYE Last Admin: 07/04/17 13:19 Dose: 1 drop Prochlorperazine Edisylate (Compazine Inj*) 5 mg IV Q6H PRN PRN Reason: NAUSEA/VOMITING Last Admin: 07/05/17 10:33 Dose: 5 mg Quetiapine Fumarate (Seroquel Tab*) 50 mg PO BEDTIME PRN PRN Reason: ANXIETY Last Admin: 07/04/17 20:41 Dose: 50 mg - Discharge Plan Discharge Plan: Inpatient Hospitalization - Transfer to [facility] after Medical clearence for proper med. changes/adjustments.
[2017-07-05] MEDS: Pantoprazole IV* 40 MG IV SCH (18:21)
[2017-07-05] MEDS: QUEtiapine TAB* 25 MG PO PRN (20:23)
[2017-07-06] MEDS: Acetaminophen TAB* 325 MG PO PRN ×2 (01:57→12:48)
[2017-07-06] MEDS: Heparin VIAL(*) 5000 UNITS/ML VIAL (FIVE THOUSAND) SUBCUT SCH ×3 (05:13→20:52)
[2017-07-06 05:33] LABS: BUN/Creatinine Ratio 6.4 (8-20); Calcium 9.5 mg/dL (8.6-10.3); EGFR African American 84.4 (>60); EGFR Non-African American 65.6 (>60); Potassium 3.5 mmol/L (3.5-5.0)
--- NOTE | 2017-07-06 07:57 | PN ---
Subjective Date of Service: 07/06/17 Interval History: Ms. Wharton's mental status is unchanged. She remains slow but appropriate with her minimal responses. She continues to have an intentional tremor. She c/o of a neck pain at times, relieved with re-positioning and hot packs. She denies chest pain, SOB, nausea, or abdominal pain. Patient has been seen in consultation by Psychiatry today who have recommended some medication adjustments and have noted that she is not appropriate for the MHU milieu at this time due to her slow mentation and weakness. Family History: Unchanged from Admission Social History: Unchanged from Admission Past Medical History: Unchanged from Admission Objective Active Medications: Acetaminophen (Tylenol Tab*) 650 mg PO Q6H PRN Ferrous Sulfate (Ferrous Sulfate Tab*) 325 mg PO DAILY MAGO Heparin Sodium (Porcine) (Heparin Vial(*)) 5,000 units SUBCUT Q8HR MAGO Ondansetron HCl (Zofran Inj*) 4 mg IV Q4H PRN Pantoprazole Sodium (Protonix Iv*) 40 mg IV Q24H MAGO Polyvinyl Alcohol (Polyvinyl Alcohol 1.4% Opth*) 1 drop BOTH EYES Q2H PRN Prochlorperazine Edisylate (Compazine Inj*) 5 mg IV Q6H PRN Quetiapine Fumarate (Seroquel Tab*) 50 mg PO BEDTIME PRN Vital Signs: Temp Pulse Resp BP Pulse Ox 99.0 F 86 16 114/69 98 07/06/17 03:47 07/06/17 03:47 07/06/17 03:47 07/06/17 03:47 07/06/17 03:47 Oxygen Devices in Use Now: None Appearance: Female lying in bed in NAD Eyes: No Scleral Icterus Ears/Nose/Mouth/Throat: Mucous Membranes Moist Neck: Trachea Midline Respiratory: Symmetrical Chest Expansion and Respiratory Effort, Clear to Auscultation Cardiovascular: NL Sounds; No Murmurs; No JVD, No Edema Abdominal: NL Sounds; No Tenderness; No Distention Lymphatic: No Cervical Adenopathy Extremities: No Edema Skin: No Rash or Ulcers Neurological: NL Muscle Strength and Tone, - - Tremor, Alert but slow, oriented Nutrition: Taking PO's Result Diagrams: 07/05/17 05:10 07/06/17 04:50 Additional Lab and Data: . Microbiology and Other Data: Microbiology 07/03/17 18:39 Stool Occult Blood (JANELL) - Final Stool Assess/Plan/Problems-Billing Ms. Wharton is a 42 yo F w/ PMH significant for depression, bipolar, personality disorder who presented to the ER on 06/29/17 with confusion and 1 week of diarrhea found to be in acute renal failure with lithium toxicity. - Patient Problems (1) [place] toxicity Comment: - Symptoms continue to wax and wane though seem to be improving somewhat overall. - [place] level 1.05. - Appreciate psych consult, patient not appropriate for BHU given her continued slow mentation and weakness. - Neuro to consult to assess for any occult contributers to patients altered mentation and tremor. - Psych to offer recommendations regarding medication adjustments. (2) Anemia Comment: - Hgb down to 9. - Suspect dilutional with aggressive IV fluids since arrival. - Stool occult blood negative. No report of heavy menstruation from family. Mild iron deficiency, increased supplementation to BID dosing. (3) Bipolar 1 disorder Comment: - Psych recommendations for medication adjustments pending. (4) DVT prophylaxis Comment: - Heparin SQ (5) Full code status Status and Disposition: Inpatient with expected LOS > 2 days. Patient will need additional psych support and support with ADLs and basic care. 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
[2017-07-06] MEDS: PROCHLORPERAZINE INJ 5 MG/ML 2 ML VIAL IV PRN ×3 (08:34→20:39)
[2017-07-06] MEDS: Ferrous Sulfate TAB* 325 MG PO SCH ×2 (08:37→17:45)
[2017-07-06] MEDS ORDERED: QUEtiapine TAB* 25 MG PO PRN (15:46)
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
[2017-07-06] MEDS: Ondansetron INJ* 2 MG/ML VIAL IV PRN (16:55)
[2017-07-06 17:39] LABS: TSH (Thyroid Stimulating Horm) 6.35 mcIU/mL (0.34-5.60)
[2017-07-06] MEDS: Pantoprazole IV* 40 MG IV SCH (17:45)
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
[2017-07-06 18:39] LABS: Free T4 0.99 ng/dL (0.61-1.12)
[2017-07-06 20:00] LABS: Urine Bilirubin Negative (Negative); Urine Glucose Negative (Negative); Urine Nitrite Negative (Negative)
[2017-07-06] MEDS: Acetaminophen ADULT LIQ* 650 MG/20.3 ML UDC PO PRN (20:51)
[2017-07-06] MEDS ORDERED: QUEtiapine TAB* 25 MG PO SCH (21:00)
[2017-07-07] MEDS: Heparin VIAL(*) 5000 UNITS/ML VIAL (FIVE THOUSAND) SUBCUT SCH ×3 (05:24→22:15)
[2017-07-07] MEDS: Acetaminophen ADULT LIQ* 650 MG/20.3 ML UDC PO PRN ×2 (05:27→13:11)
[2017-07-07] MEDS: PROCHLORPERAZINE INJ 5 MG/ML 2 ML VIAL IV PRN (07:59)
[2017-07-07] MEDS: Ferrous Sulfate TAB* 325 MG PO SCH ×2 (09:10→17:54)
--- NOTE | 2017-07-07 13:02 | PN ---
Subjective Date of Service: 07/07/17 Interval History: Patient seen this morning. Continues to have psychomotor retardation, responses are slow. Mother notes some improvements today in that patient ambulated in the hallway, nausea/vomiting improved, photophobia seems to have improved as well. Able to grasp drink today which she reportedly was unable to do yesterday. Did not sleep well last night, feels speech may be a bit more difficult today. Patient gets overwhelmed quickly with orientation questions. Family History: Unchanged from Admission Social History: Unchanged from Admission Past Medical History: Unchanged from Admission Objective Active Medications: Acetaminophen (Tylenol Adult Liq*) 650 mg PO Q6H PRN Ferrous Sulfate (Ferrous Sulfate Tab*) 325 mg PO BID WITH MEALS [facility] Heparin Sodium (Porcine) (Heparin Vial(*)) 5,000 units SUBCUT Q8HR [facility] Ondansetron HCl (Zofran Inj*) 4 mg IV Q4H PRN Pantoprazole Sodium (Protonix Iv*) 40 mg IV Q24H [facility] Polyvinyl Alcohol (Polyvinyl Alcohol 1.4% Opth*) 1 drop BOTH EYES Q2H PRN Prochlorperazine Edisylate (Compazine Inj*) 5 mg IV Q6H PRN Quetiapine Fumarate (Seroquel Tab*) 75 mg PO BEDTIME [facility] Vital Signs 07/06/17 07/06/17 07/06/17 15:36 19:16 20:00 Temperature 98.7 F 98.6 F Pulse Rate 98 96 Respiratory 20 20 18 Rate Blood Pressure 121/78 154/107 (mmHg) O2 Sat by Pulse 100 99 Oximetry 07/06/17 07/06/17 07/07/17 23:40 23:52 03:39 Temperature 98.6 F 97.9 F Pulse Rate 118 102 Respiratory 20 16 Rate Blood Pressure 148/78 124/80 (mmHg) O2 Sat by Pulse 100 97 Oximetry 07/07/17 07/07/17 07:31 07:37 Temperature 98.7 F Pulse Rate 104 Respiratory 20 18 Rate Blood Pressure 152/92 (mmHg) O2 Sat by Pulse 98 Oximetry Oxygen Devices in Use Now: None Appearance: Middle-aged, F, laying in bed drinking ensure Eyes: No Scleral Icterus Ears/Nose/Mouth/Throat: Mucous Membranes Moist Neck: NL Appearance and Movements; NL JVP Respiratory: Symmetrical Chest Expansion and Respiratory Effort, Clear to Auscultation Cardiovascular: NL Sounds; No Murmurs; No JVD, RRR Abdominal: NL Sounds; No Tenderness; No Distention Lymphatic: No Cervical Adenopathy Extremities: No Edema Skin: No Rash or Ulcers Neurological: - - Alert, slow speech, able to tell me name, could not tell me year and with repeated questioning she became overwhelmed and tearful, tremor noted Result Diagrams: 07/05/17 05:10 07/06/17 04:50 Additional Lab and Data: . Microbiology and Other Data: Microbiology 07/03/17 18:39 Stool Occult Blood (JANELL) - Final Stool Assess/Plan/Problems-Billing Ms. Wharton is a 42 yo F w/ PMH significant for depression, bipolar, personality disorder who presented to the ER on 06/29/17 with confusion and 1 week of diarrhea found to be in acute renal failure with lithium toxicity. - Patient Problems (1) [place] toxicity Current Visit: Yes Comment: - Symptoms seem to be slowly improving - [place] level 1.05 when last checked, continuing to hold for now - Appreciate psych consult, patient not appropriate for U given her continued slow mentation and weakness. Seroquel increased to 75 mg qhs on 07/06 - Appreciate Neuro assistance, no additional testing recommended. TSH minimally elevated and FT4 normal (2) Acute renal failure Current Visit: Yes Comment: - Resolved. (3) Anemia Current Visit: Yes Comment: - Hgb down to 9. - Suspect dilutional with aggressive IV fluids since arrival. - Stool occult blood negative. No report of heavy menstruation from family. Mild iron deficiency, continue supplemental iron. (4) Bipolar 1 disorder Current Visit: Yes Comment: - Psych recommendations for medication adjustments pending. Holding most outpatient meds. (5) Colitis Current Visit: Yes Comment: - Resolved. (6) DVT prophylaxis Current Visit: Yes Comment: - Heparin SQ Status and Disposition: Inpatient. Will likely need placement.
--- NOTE | 2017-07-07 16:32 | CONSULT ---
Identification - Patient Identification Reason for Psychiatric Consultation: Other -: Patient is a 42 year old, F admitted on 07/01/17. - MHU Identification Hx Psychiatric Hospitalization: Yes History - Objective HPI: Sally remains confused and anxious, finding it difficult to position herself comfortably in her bed, even with the assistance of her mother, who is present. They report that she did not sleep well last night. I noted from speaking with her outpatient psychiatrist, Anthony Loving, that Sally is supposed to be on 300mg of nightly quetiapine. She denies SI or HI but is frustrated with her lack of improvement. Lab Results: Laboratory Tests 07/01/17 07/02/17 07/02/17 16:33 05:35 05:35 WBC 8.7 RBC 3.73 L Hgb 9.2 L Hct 29 L MCV 78 L MCH 25 L MCHC 32 RDW 17 H Plt Count 223 MPV 8 Neut % (Auto) 67.8 Lymph % (Auto) 20.3 L [place] % (Auto) 8.0 Eos % (Auto) 3.0 Baso % (Auto) 0.9 Absolute Neuts (auto) 5.9 Absolute Lymphs (auto) 1.8 Absolute Monos (auto) 0.7 Absolute Eos (auto) 0.3 Absolute Basos (auto) 0.1 Absolute Nucleated RBC 0 Nucleated RBC % 0 Sodium 134 Potassium 2.8 L 3.4 L Chloride 109 Carbon Dioxide 19 L Anion Gap 6 BUN 10 Creatinine 1.24 H Est GFR ( Amer) 61.3 Est GFR (Non-Af Amer) 47.7 BUN/Creatinine Ratio 8.1 Glucose 133 H Calcium 8.9 Iron 29 L TIBC 440 % Saturation 7 L Unsat Iron Binding 411 Ferritin 13.2 Vitamin B12 521 Folate 18.27 TSH Free T4 Urine Color Urine Appearance Urine pH Ur Specific [place] Urine Protein Urine Ketones Urine Blood Urine Nitrate Urine Bilirubin Urine Urobilinogen Ur Leukocyte Esterase Urine Glucose [place] 2.74 H* 07/03/17 07/03/17 07/04/17 05:00 05:00 09:25 WBC 8.3 RBC 3.70 L Hgb 9.1 L Hct 29 L MCV 77 L MCH 25 L MCHC 32 RDW 17 H Plt Count 216 MPV 8 Neut % (Auto) 64.4 Lymph % (Auto) 23.9 L [place] % (Auto) 9.1 H Eos % (Auto) 1.4 Baso % (Auto) 1.2 Absolute Neuts (auto) 5.4 Absolute Lymphs (auto) 2.0 Absolute Monos (auto) 0.8 Absolute Eos (auto) 0.1 Absolute Basos (auto) 0.1 Absolute Nucleated RBC 0 Nucleated RBC % 0 Sodium 140 Potassium 3.6 Chloride 112 H Carbon Dioxide 23 Anion Gap 5 BUN 4 L Creatinine 1.09 H Est GFR ( Amer) 71.1 Est GFR (Non-Af Amer) 55.3 BUN/Creatinine Ratio 3.7 L Glucose 159 H Calcium 9.4 Iron TIBC % Saturation Unsat Iron Binding Ferritin Vitamin B12 Folate TSH Free T4 Urine Color Urine Appearance Urine pH Ur Specific [place] Urine Protein Urine Ketones Urine Blood Urine Nitrate Urine Bilirubin Urine Urobilinogen Ur Leukocyte Esterase Urine Glucose [place] 1.81 H* 1.05 07/05/17 07/06/17 07/06/17 05:10 04:50 19:45 WBC 7.5 RBC 3.61 L Hgb 8.9 L Hct 28 L MCV 77 L MCH 25 L MCHC 32 RDW 18 H Plt Count 221 MPV 9 Neut % (Auto) 49.3 Lymph % (Auto) 38.4 [place] % (Auto) 6.1 Eos % (Auto) 5.1 Baso % (Auto) 1.1 Absolute Neuts (auto) 3.7 Absolute Lymphs (auto) 2.9 Absolute Monos (auto) 0.5 Absolute Eos (auto) 0.4 Absolute Basos (auto) 0.1 Absolute Nucleated RBC 0 Nucleated RBC % 0.1 Sodium 144 Potassium 3.5 Chloride 111 Carbon Dioxide 29 Anion Gap 4 BUN 6 Creatinine 0.94 Est GFR ( Amer) 84.4 Est GFR (Non-Af Amer) 65.6 BUN/Creatinine Ratio 6.4 L Glucose 96 Calcium 9.5 Iron TIBC % Saturation Unsat Iron Binding Ferritin Vitamin B12 Folate TSH 6.35 H Free T4 0.99 Urine Color Straw Urine Appearance Clear Urine pH 7.0 Ur Specific [place] 1.003 L Urine Protein Negative Urine Ketones Negative Urine Blood Negative Urine Nitrate Negative Urine Bilirubin Negative Urine Urobilinogen Negative Ur Leukocyte Esterase Negative Urine Glucose Negative [place] Exam Appearance: Obese Hygiene: Normal Grooming: Fairly Well Kept Psychomotor Activities: Abnormal-Increased Exhibits Abnormal Movement: Yes Attitude and Relatedness: Needy Eye Contact: Fair - Speech Quality: Pressured Latencies: Short Quantity: Terse Patient's Decription of Mood: "Anxious" Observed Affect: Depressed Affect Consistent with: Dysphoria Patient's Thought Process: Impoverished Thought Content: No Passive Wish, No Suicidal Planning, No Homicidal Ideation, No Paranoid Ideation Experiencing Hallucinations: No, Sensorium is Clear Type of Hallucinations: Visual: No, Auditory: No, Command: No Level of Consciousness: Alert Orientation: Yes Orientated to Time, Yes Orientated to Person, No Intact, No Orientated to Place Impulse Control: Tenuous Insight and Judgement: Fair Impression - Impression Clinical Impression: 42 y.o. single, , white female with a documented history of bipolar, stable on lithium and quetiapine therapies for years, who presented to the medical service with confusion and ataxia secondary to lithium toxicity. Merits Inpatient Hospitalization: No - [place] I Mental Illness: Unspecified Bipolar D/O - [place] III Medical Illness: S/P [place] Toxocity. Obisity Plan - Treatment Plan Treatment Plan: The patient is confused and encephalopathic with poor gait, muscle weakness and dysarthria. She would not benefit from psychiatric treatment on the inpatient Behavioral Science setting at this time, as she is not able to participate in therapeutic activities. We will increase her quetiapine to 100mg PO qhs, as this can help keep her mood stable and also reduce delirium. Psychiatry will continue to follow. Continued Medication Management: Different Medication Medications: Current Medications Acetaminophen (Tylenol Adult Liq*) 650 mg PO Q6H PRN PRN Reason: PAIN Last Admin: 07/07/17 13:11 Dose: 650 mg Ferrous Sulfate (Ferrous Sulfate Tab*) 325 mg PO BID WITH MEALS [facility] Last Admin: 07/07/17 09:10 Dose: 325 mg Heparin Sodium (Porcine) (Heparin Vial(*)) 5,000 units SUBCUT Q8HR [facility] Last Admin: 07/07/17 13:12 Dose: 5,000 units Ondansetron HCl (Zofran Inj*) 4 mg IV Q4H PRN PRN Reason: NAUSEA Last Admin: 07/06/17 16:55 Dose: 4 mg Pantoprazole Sodium (Protonix Iv*) 40 mg IV Q24H [facility] Last Admin: 07/06/17 17:45 Dose: 40 mg Polyvinyl Alcohol (Polyvinyl Alcohol 1.4% Opth*) 1 drop BOTH EYES Q2H PRN PRN Reason: DRY EYE Last Admin: 07/04/17 13:19 Dose: 1 drop Prochlorperazine Edisylate (Compazine Inj*) 5 mg IV Q6H PRN PRN Reason: NAUSEA/VOMITING Last Admin: 07/07/17 07:59 Dose: 5 mg Quetiapine Fumarate (Seroquel Tab*) 100 mg PO BEDTIME [facility] - Discharge Plan Discharge Plan: Outpatient Follow Up Outpatient Program: [facility]
[2017-07-07] MEDS: Artificial Tears* 15 ML BTL BOTH EYES PRN (17:37)
[2017-07-07] MEDS: Pantoprazole IV* 40 MG IV SCH (17:54)
[2017-07-07] MEDS ORDERED: QUEtiapine TAB* 100 MG PO SCH (21:00)
[2017-07-08 00:06] VITALS: BP 120/71
[2017-07-08] MEDS: Acetaminophen ADULT LIQ* 650 MG/20.3 ML UDC PO PRN ×2 (00:36→07:27)
[2017-07-08] MEDS: Heparin VIAL(*) 5000 UNITS/ML VIAL (FIVE THOUSAND) SUBCUT SCH (06:44)
[2017-07-08] MEDS: Ferrous Sulfate TAB* 325 MG PO SCH (07:27)
--- NOTE | 2017-07-08 10:10 | PN ---
Subjective Date of Service: 07/08/17 Interval History: Patient seen this morning with mother present. Mother reports patient having some increased tremors this morning. In speaking with the patient seems that her speech is clearer to me today. Says she has not been eating a lot but has been drinking ensure and other fluids. Gets overwhelmed and frustrated during our conversation. Family History: Unchanged from Admission Social History: Unchanged from Admission Past Medical History: Unchanged from Admission Objective Active Medications: Acetaminophen (Tylenol Adult Liq*) 650 mg PO Q6H PRN Ferrous Sulfate (Ferrous Sulfate Tab*) 325 mg PO BID WITH MEALS [facility]O Heparin Sodium (Porcine) (Heparin Vial(*)) 5,000 units SUBCUT Q8HR [facility] Ondansetron HCl (Zofran Inj*) 4 mg IV Q4H PRN Pantoprazole Sodium (Protonix Iv*) 40 mg IV Q24H [facility] Polyvinyl Alcohol (Polyvinyl Alcohol 1.4% Opth*) 1 drop BOTH EYES Q2H PRN Prochlorperazine Edisylate (Compazine Inj*) 5 mg IV Q6H PRN Quetiapine Fumarate (Seroquel Tab*) 100 mg PO BEDTIME [facility] Vital Signs 07/07/17 07/07/17 07/07/17 11:23 16:52 20:00 Temperature 98.3 F 98.2 F Pulse Rate 81 101 Respiratory 16 16 16 Rate Blood Pressure 152/84 126/89 (mmHg) O2 Sat by Pulse 98 100 Oximetry 07/07/17 07/08/17 07/08/17 23:50 02:26 08:00 Temperature 98.6 F Pulse Rate 84 Respiratory 16 18 Rate Blood Pressure 120/71 (mmHg) O2 Sat by Pulse 99 99 Oximetry Oxygen Devices in Use Now: None Appearance: Middle-aged, F, sitting in wheelchair in NAD Eyes: No Scleral Icterus Ears/Nose/Mouth/Throat: Mucous Membranes Moist Neck: NL Appearance and Movements; NL JVP Respiratory: Symmetrical Chest Expansion and Respiratory Effort, Clear to Auscultation Cardiovascular: NL Sounds; No Murmurs; No JVD, RRR Abdominal: NL Sounds; No Tenderness; No Distention Lymphatic: No Cervical Adenopathy Extremities: No Edema Skin: No Rash or Ulcers Neurological: - - Slow but clear speech, tremor in RLE (resolved when checking DP pulse), overwhelmed with questioning, becomes tearful Result Diagrams: 07/05/17 05:10 07/06/17 04:50 Additional Lab and Data: . Microbiology and Other Data: Assess/Plan/Problems-Billing Ms. Wharton is a 42 yo F w/ PMH significant for depression, bipolar, personality disorder who presented to the ER on 06/29/17 with confusion and 1 week of diarrhea found to be in acute renal failure with lithium toxicity. - Patient Problems (1) [place] toxicity Current Visit: Yes Comment: - Symptoms seem to be slowly improving - [place] level 1.05 when last checked, continuing to hold for now - Appreciate psych consult, patient not appropriate for [facility] given her continued slow mentation and weakness. Seroquel increased to 100 mg qhs on 07/07. Will ask Psych about any other potential therapies for her toxicity symptoms (i.e. tremor ) - Appreciate Neuro assistance, no additional testing recommended. TSH minimally elevated and FT4 normal (2) Acute renal failure Current Visit: Yes Comment: - Resolved. (3) Anemia Current Visit: Yes Comment: - Hgb down to 9. - Suspect dilutional with aggressive IV fluids since arrival. - Stool occult blood negative. No report of heavy menstruation from family. Mild iron deficiency, continue supplemental iron. (4) Bipolar 1 disorder Current Visit: Yes Comment: - Psych recommendations for medication adjustments pending. Holding most outpatient meds. (5) Colitis Current Visit: Yes Comment: - Resolved. (6) DVT prophylaxis Current Visit: Yes Comment: - Heparin SQ Status and Disposition: Inpatient. Will need rehab, [facility]RU vs SNF
[2017-07-08] MEDS: Artificial Tears* 15 ML BTL BOTH EYES PRN (12:25)
--- NOTE | 2017-07-08 21:48 | DS ---
CC: Dr. Elmore* DISCHARGE SUMMARY: DATE OF ADMISSION: 06/30/17 DATE OF TRANSFER: To [facility], 07/08/17 PRIMARY CARE PHYSICIAN: Dr. Elmore. PRINCIPAL DISCHARGE DIAGNOSES: 1. [place] toxicity. 2. Acute kidney injury. SECONDARY DIAGNOSES: 1. Depression. 2. Suicidal ideation. 3. Bipolar disorder. 4. Psychosis. STUDIES DONE DURING HOSPITALIZATION: CT of the brain, impression: Negative examination. CT abdomen and pelvis without contrast, impression: Mildly distended colon with liquid stool. Findings may be secondary to a mild colitis, hepatic steatosis, cholecystectomy. CONSULTANTS DURING HOSPITALIZATION: Dr. Gurwinder Valdez, Psychiatry; Dr. Jane De Luna, Neurology. DISCHARGE MEDICATION REGIMEN: Upon transfer to psych unit: 1. Quetiapine 100 mg by mouth at bedtime. 2. Phenergan 25 mg by mouth every 6 hours as needed for nausea. 3. Zofran 4 mg by mouth every 6 hours as needed for nausea. 4. Ferrous sulfate 325 mg by mouth 3 times daily. 5. Artificial Tears 1 drop in both eyes every 2 hours as needed for dry eyes. 6. Tylenol 650 mg by mouth every 6 hours as needed for pain. HISTORY OF PRESENT ILLNESS AN HOSPITAL SUMMARY: Please see the full history and physical by Efraín Thao NP, for full details. Briefly, Ms. Franklin is a 42-year- old female with past medical history as above, who presented to the hospital with diarrhea, decreased p.o. intake, altered mental status. Apparently, the patient had been having symptoms for some time prior to coming to the hospital, but had initially declined her family's request for her to come in to be evaluated. On arrival to the emergency department, the patient was found to have a significantly elevated lithium level of 3.47. The patient was also in acute renal failure with a creatinine of 2.02. The patient was admitted to the hospital and aggressively hydrated. Neurology and Psychiatry were consulted, and both thought the patient's symptoms such as slurred speech, tremor, ataxia and GI symptoms were all secondary to her lithium toxicity. All the patient's psych medications were initially held. She was initially started on Cipro and Flagyl as there was some concern for possible infectious colitis, although this was stopped. Over the following days, the patient's symptoms slowly improved with improvement in her lithium levels. Her renal failure resolved. The patient did develop some anemia, which was felt to be due to iron deficiency and the patient was started on iron supplementation. The patient's Seroquel was restarted and titrated up as per Psychiatry recommendations as there is no further acute medical therapies. The patient was felt to be medically stable; however, she was not safe to be discharged home. PMRU evaluated the patient and decided to accept her for inpatient rehab. She will be transferred to the rehab unit, continued on current medications and will continue to be followed by Psychiatry. TIME SPENT: Total time spent on this discharge, 45 minutes. This is a summary of the hospitalization. Please see the full medical record for further details. [id number]/[facility] #: [id number] MTDD
== END 2017-07-08 13:57 | DRG 682 ==
LOC: ED 16:33 → MEDTELE 21:41 → OBSVTOIN 07-01 11:20 → MEDTELE 07-06 20:40
PROVIDERS: ADMIT Hospitalist; ATTEND Hospitalist
DX: N17.9 Acute kidney failure, unspecified (principal); G93.40 Encephalopathy, unspecified; F14.259 Cocaine dependence with cocaine-induced psychotic disorder, unspecified; A09 Infectious gastroenteritis and colitis, unspecified; R44.3 Hallucinations, unspecified; K76.0 Fatty (change of) liver, not elsewhere classified; F41.9 Anxiety disorder, unspecified; Z98.51 Tubal ligation status; F60.9 Personality disorder, unspecified; E87.6 Hypokalemia; R41.82 Altered mental status, unspecified; R11.2 Nausea with vomiting, unspecified; E86.0 Dehydration; F32.9 Major depressive disorder, single episode, unspecified; F31.9 Bipolar disorder, unspecified; M54.2 Cervicalgia; E66.9 Obesity, unspecified; R27.0 Ataxia, unspecified; R47.1 Dysarthria and anarthria; D50.9 Iron deficiency anemia, unspecified; Z68.32 Body mass index [BMI] 32.0-32.9, adult; Z90.49 Acquired absence of other specified parts of digestive tract; Z82.49 Family history of ischemic heart disease and other diseases of the circulatory system; Z87.891 Personal history of nicotine dependence
CPT/HCPCS: 36415; 70450; 74176; 80048; 80053; 80076; 80178; 81003; 81015; 82140; 82272; 82570; 82607; 82728; 82746; 83540; 83550; 83605; 83630; 83690; 83735; 84132; 84300; 84439; 84443; 84484; 84702; 85025; 86141; 87045; 87046; 87077; 87086; 87425; 87449; 87493; 87899; 93005; 94760; A9270-GY; J0744; J0780; J1644; J2405; J3480

== ENCOUNTER 2017-07-08 13:00 | Inpatient (IN) | payer MEDICARE, MEDICAID ==
[2017-07-08] MEDS ORDERED: Acetaminophen TAB* 325 MG PO PRN (14:13)
[2017-07-08] MEDS ORDERED: Artificial Tears* 15 ML BTL BOTH EYES PRN (14:20)
[2017-07-08] MEDS: Acetaminophen ADULT LIQ* 650 MG/20.3 ML UDC PO PRN (16:27)
--- NOTE | 2017-07-08 20:49 | HP ---
ADMISSION HISTORY AND PHYSICAL: DATE OF ADMISSION: 07/08/17 REASON FOR ADMISSION: Encephalopathy with lithium toxicity. HISTORY OF ILLNESS: Sally Franklin is a 42-year-old female. She has a medical history significant for bipolar disease. She has been on lithium for 12 years. Her psychiatrist is Dr. Loving at the [facility]. The patient presented to our emergency room on 06/30/17. Roughly 1 week prior, she was seen by her mental health counselor at the [facility] and was felt to be not herself. She also got a phone call from her cavalry officer who felt that her speech was off on 06/24/17. She had been having and diarrhea and was dehydrated during that time. The patient really was not eating or drinking when she came to the emergency room on 06/30/17. At that time, in addition to the nausea, vomiting and diarrhea, the patient was found to have hypokalemia in the emergency room with a potassium of 2.6 as well as a BUN of 29 and a creatinine of 2.02. The patient also had changes in her mental status. She was admitted to the hospital. She had testing done including a lithium level. Her lithium level was 3.47 on admission. She was treated with IV fluids and her lithium level slowly came down. Her most recent lithium level was done on 07/04 and it was 1.05. The patient had significant difficulty with her motor planning as well as her thinking. She had a neurology consult done by Dr. De Luna. Dr. De Luna suggested checking her thyroid, but otherwise felt that this was lithium toxicity with encephalopathy. The patient was also seen by the psychiatry team and Dr. Valdez. Dr. Valdez felt that the patient did not meet criteria for acute stay on the mental health unit, but did recommend continuing to hold her lithium while she was encephalopathic. He also restarted her Seroquel to keep her mood stable. The patient had significant difficulty with motor planning with her thinking as well as with her actual abilities to care for herself and move around. She was felt to have physical therapy, occupational therapy, and speech therapy needs as a result of her encephalopathy from her lithium toxicity. She is now being admitted for inpatient rehab so that she may return to independent living. PAST MEDICAL HISTORY: Significant for bipolar disease as mentioned previously. In addition, she has had suicidal ideation. CURRENT MEDICATIONS: Include, 1. Seroquel 100 mg at bedtime. 2. She was on a proton pump inhibitor. 3. She was on Zofran for nausea. 4. Heparin for DVT prophylaxis. 5. Iron supplementation. ALLERGIES: No known drug allergies. SOCIAL HISTORY: The patient lives with her boyfriend in a one-story apartment. She gets housing through [place] [id number] and her boyfriend lives with her. Through her family, I have learned that her boyfriend is a regular user of heroin and takes money from the patient in order to supply his drug habit. The patient has 3 children, but has custody of none of them. She is and 2 of her daughters live with her ex-. A third daughter lives with her sister. The patient is allowed visitations, but only if she goes alone. If she brings her current boyfriend, she is not allowed to have visitation with her children. The patient's mother lives in [place], but formerly lived in the [facility]. She does have a sister who lives nearby. The patient is currently disabled and has not worked in 7 years. REVIEW OF SYSTEMS: The patient reports ongoing difficulty with nausea and vomiting. She is able to hold water and demarco jovan down, but does not have much appetite. PHYSICAL EXAMINATION VITAL SIGNS: Today, the patient's temperature is 99.3, blood pressure is 151/90 , pulse is 92 respirations 16. HEENT: Her extraocular movements are intact. Tongue is midline. NECK: Supple with no lymphadenopathy. LUNGS: Sound clear to auscultation bilaterally. HEART: Sounds are regular. S1 and S2 are audible. ABDOMEN: Soft and nontender. EXTREMITIES: The patient had a resting tremor in her legs. No edema was noted and peripheral pulses were intact. NEUROLOGIC: The patient was awake. She was oriented to herself and to place. She had a hypophonic voice and was hard to understand. Her muscle strength appeared to be about 4+/5 throughout. FUNCTIONAL EXAM: She transfers with min assist. ASSESSMENT: 1. [place] toxicity. 2. Encephalopathy secondary to lithium toxicity. 3. Motor planning problems and weakness secondary to lithium toxicity. PLAN: Integrate her into a comprehensive and therapeutic rehab program with the following goals: 1. Physical Therapy will work with patient. They are going to work on functional transfer training, ambulation training with a walker or without assistive devices as necessary. 2. Occupational Therapy will see the patient, work on her activities of daily living including self care, toileting and toilet transfers. 3. Speech Therapy will see the patient, work on her cognitive skills with her as well as voice. 4. Heparin for DVT prophylaxis. 5. For her nausea, we are going try to increase her oral intake. We may add antinausea medications as needed. 6. Advanced directives: The patient is a full code. She does not have any advanced directives. 7. Conversion Man will be closely involved to make sure that any services and equipment that the patient requires are in place prior to discharge. 8. Psychiatry followup as indicated. 9. Family training as indicated. 10. Home with appropriate services. ESTIMATED LENGTH OF STAY: 10 to 14 days. [id number]/[facility] #: [id number] VINOD
[2017-07-08] MEDS: QUEtiapine TAB* 100 MG PO SCH (21:05)
[2017-07-08] MEDS: Heparin VIAL(*) 5000 UNITS/ML VIAL (FIVE THOUSAND) SUBCUT SCH (22:09)
[2017-07-09] MEDS: Acetaminophen ADULT LIQ* 650 MG/20.3 ML UDC PO PRN ×3 (04:25→17:29)
[2017-07-09] MEDS: Omeprazole CAP* 20 MG PO SCH (07:15)
[2017-07-09] MEDS: Heparin VIAL(*) 5000 UNITS/ML VIAL (FIVE THOUSAND) SUBCUT SCH ×3 (07:15→22:14)
[2017-07-09] MEDS: Ferrous Sulfate TAB* 325 MG PO SCH (09:00)
--- NOTE | 2017-07-09 13:50 | CONSULT ---
Identification - Patient Identification Reason for Psychiatric Consultation: Incapacitating Symptoms -: Patient is a 42 year old, F admitted on 07/08/17. - MHU Identification Employment Status: Disabled Hx Psychiatric Hospitalization: Yes History - Objective HPI: Sally is seen by the psychiatric consult service as an extension of her care from upstairs, during her acute medical hospitalization on . Today, Sally remains tremulous and uncomfortable with cognitive slowing, episodic confusion and difficulty getting comfortable. She can only attend to an interpersonal interaction for a short period before becoming frustrated and fatigued, so I rely on her sister for some of the history. Apparently the patient is able to fall asleep well, but tends to wake up frequently with tremors. She is not yet able to cooperate fully with rehab therapies. Exam Appearance: Obese Hygiene: Normal Grooming: Fairly Well Kept Psychomotor Activities: Abnormal-Increased Exhibits Abnormal Movement: Yes Attitude and Relatedness: Minimally Cooperative Eye Contact: Fair - Speech Quality: Unpressured Latencies: Long Quantity: Terse Patient's Decription of Mood: "Upset" Observed Affect: Constricted Affect Consistent with: Dysphoria Patient's Thought Process: Disorganized Thought Content: No Passive Wish, No Suicidal Planning, No Homicidal Ideation, No Paranoid Ideation Experiencing Hallucinations: No, Sensorium is Clear Type of Hallucinations: Visual: No, Auditory: No, Command: No Level of Consciousness: Alert Orientation: Yes Intact, Yes Orientated to Time, Yes Orientated to Place, Yes Orientated to Person Impulse Control: Tenuous Insight and Judgement: Fair Impression - Impression Clinical Impression: 42 y.o. , white female with a history of bipolar disorder admitted to [facility] as a transfer from the Hospitalist service following medical stabilization for renal failure and acute, unintentional lithium toxicity (level: 3.47). She is neither suicidal nor homicidal but very confused, tremulous, anxious and frustrated. Our service has been helping manage her meds. Inpatient DSM-IV Dx: Delirium secondary to acute lithium toxicity Merits Inpatient Hospitalization: No Plan - Treatment Plan Treatment Plan: Continue to hold lithium. Quetiapine has been resumed at 100mg PO qhs and we can increase this to 200mg PO qhs. Psychiatry will continue to follow. Continued Medication Management: Continue Outpt Medication Medications: Current Medications Acetaminophen (Tylenol Adult Liq*) 650 mg PO Q6H PRN PRN Reason: FEVER/PAIN Last Admin: 07/09/17 10:56 Dose: 650 mg Ferrous Sulfate (Ferrous Sulfate Tab*) 325 mg PO DAILY [facility] Last Admin: 07/09/17 09:00 Dose: 325 mg Heparin Sodium (Porcine) (Heparin Vial(*)) 5,000 units SUBCUT Q8HR [facility] Last Admin: 07/09/17 07:15 Dose: Not Given Omeprazole (Prilosec Cap*) 20 mg PO 0600 [facility] Last Admin: 07/09/17 07:15 Dose: Not Given Polyvinyl Alcohol (Polyvinyl Alcohol 1.4% Opth*) 1 drop BOTH EYES Q2H PRN PRN Reason: DRY EYE Last Admin: 07/08/17 16:35 Dose: 1 drop Quetiapine Fumarate (Seroquel Tab*) 100 mg PO BEDTIME [facility] Last Admin: 07/08/17 21:05 Dose: 100 mg - Discharge Plan Discharge Plan: Outpatient Follow Up Outpatient Program: [facility]
[2017-07-09] MEDS: QUEtiapine TAB* 100 MG PO SCH (20:24)
--- NOTE | 2017-07-09 22:44 | PN ---
Progress Note - Progress Note Date of Service: 07/09/17 Note: Sally visited. Therapy notes read and reviewed. Psychiatry note read and reviewed. She was intermittently cooperative with speech therapy, did better with PT. She has a tremor which worsens whenever she is stressed, as I see it. Seroquel has been increased. Not on [place]. Still with vomiting at times Current Medications Acetaminophen (Tylenol Adult Liq*) 650 mg PO Q6H PRN PRN Reason: FEVER/PAIN Last Admin: 07/09/17 17:29 Dose: 650 mg Ferrous Sulfate (Ferrous Sulfate Tab*) 325 mg PO DAILY [facility] Last Admin: 07/09/17 09:00 Dose: 325 mg Heparin Sodium (Porcine) (Heparin Vial(*)) 5,000 units SUBCUT Q8HR [facility] Last Admin: 07/09/17 22:14 Dose: 5,000 units Omeprazole (Prilosec Cap*) 20 mg PO 0600 [facility] Last Admin: 07/09/17 07:15 Dose: Not Given Polyvinyl Alcohol (Polyvinyl Alcohol 1.4% Opth*) 1 drop BOTH EYES Q2H PRN PRN Reason: DRY EYE Last Admin: 07/08/17 16:35 Dose: 1 drop Quetiapine Fumarate (Seroquel Tab*) 100 mg PO BEDTIME [facility] Last Admin: 07/09/17 20:24 Dose: 100 mg Vital Signs Temp Pulse Resp BP Pulse Ox 97.7 F 93 18 96/71 100 07/09/17 16:33 07/09/17 16:33 07/09/17 15:59 07/09/17 16:33 07/09/17 16:33 EXAM: LUNGS: Clear bilat HEART: reg rhythm ABDOMEN: Soft NEUROLOGIC: Alert. Can be uncooperative. Muscle strength appears close to normal. Thinking not clear. ASSESSMENT/PLAN: 1. [place] toxicity with psychomotor slowing: PT/OT/FIN[employer] ASSOCIATE. Check labs in am. 2. Bipolar disease: Per Dr. Valdez, will increase Seroquel. Psychiatry followup as needed 3. DVT Prophylaxis: Heparin S/Q 4. Advanced directives: Not sure she is competent at this time to fill out HCP. Will ask Dr. Valdez to comment 5. Vomiting: will try compazine. may need Zofran
[2017-07-10] MEDS ORDERED: QUEtiapine TAB* 100 MG PO ONE (00:01)
[2017-07-10] MEDS: Omeprazole CAP* 20 MG PO SCH (04:52)
[2017-07-10] MEDS: Heparin VIAL(*) 5000 UNITS/ML VIAL (FIVE THOUSAND) SUBCUT SCH ×3 (04:54→23:11)
[2017-07-10 07:12] LABS: Hematocrit 31 % (35-47); Hemoglobin 9.9 g/dl (12.0-16.0); Mean Corpuscular HGB Conc 32 g/dl (31-36); Mean Corpuscular Hemoglobin 24 pg (27-31); Mean Corpuscular Volume 77 fL (80-97); Mean Platelet Volume 9 um3 (7.4-10.4); Red Blood Count 4.05 10^6/ul (4.0-5.4); Red Cell Distribution Width 18 % (10.5-15); White Blood Count 5.4 10^3/ul (3.5-10.8)
[2017-07-10 07:24] LABS: Albumin 3.8 g/dL (3.2-5.2); BUN/Creatinine Ratio 7.7 (8-20); Calcium 9.2 mg/dL (8.6-10.3); EGFR African American 87.6 (>60); EGFR Non-African American 68.1 (>60); Total Bilirubin 0.4 mg/dL (0.2-1.0); Total Protein 6.8 g/dL (6.4-8.9)
[2017-07-10] MEDS: Ferrous Sulfate TAB* 325 MG PO SCH ×2 (08:52→21:08)
--- NOTE | 2017-07-10 10:44 | PN ---
Progress Note - Progress Note Date of Service: 07/10/17 Note: Nursing and therapy notes reviewed. Patient reports no BM in several days and feeling a little constipated. No chest pain, shortness of breath or abdominal pain. Still with tremors/shaking. Acetaminophen (Tylenol Adult Liq*) 650 mg PO Q6H PRN PRN Reason: FEVER/PAIN Last Admin: 07/09/17 17:29 Dose: 650 mg Ferrous Sulfate (Ferrous Sulfate Tab*) 325 mg PO DAILY [facility] Last Admin: 07/10/17 08:52 Dose: 325 mg Heparin Sodium (Porcine) (Heparin Vial(*)) 5,000 units SUBCUT Q8HR [facility] Last Admin: 07/10/17 04:54 Dose: 5,000 units Omeprazole (Prilosec Cap*) 20 mg PO 0600 [facility] Last Admin: 07/10/17 04:52 Dose: 20 mg Polyvinyl Alcohol (Polyvinyl Alcohol 1.4% Opth*) 1 drop BOTH EYES Q2H PRN PRN Reason: DRY EYE Last Admin: 07/08/17 16:35 Dose: 1 drop Prochlorperazine (Compazine Tab*) 10 mg PO Q6H PRN PRN Reason: NAUSEA Quetiapine Fumarate (Seroquel Tab*) 200 mg PO BEDTIME [facility] Vital Signs Temp Pulse Resp BP Pulse Ox 98.8 F 73 16 146/59 100 07/10/17 04:41 07/10/17 04:41 07/10/17 04:41 07/10/17 04:41 07/10/17 04:41 EXAM: GEN: no acute distress. alert and appropriate. LUNGS: Clear bilaterally HEART: regular rate and rhythm ABDOMEN: + bowel sounds, soft, non-tender and non-distended. NEUROLOGIC: Motor 4+/5 bilateral upper and lower extremities with normal sensation. Minimal tremor. Laboratory Results - last 24 hr 07/10/17 07/10/17 06:53 06:53 WBC 5.4 RBC 4.05 Hgb 9.9 L Hct 31 L MCV 77 L MCH 24 L MCHC 32 RDW 18 H Plt Count 330 MPV 9 Neut % (Auto) 58.5 Lymph % (Auto) 29.3 [place] % (Auto) 7.0 Eos % (Auto) 3.8 Baso % (Auto) 1.4 Absolute Neuts (auto) 3.1 Absolute Lymphs (auto) 1.6 Absolute Monos (auto) 0.4 Absolute Eos (auto) 0.2 Absolute Basos (auto) 0.1 Absolute Nucleated RBC 0 Nucleated RBC % 0.1 Sodium 140 Potassium 4.0 Chloride 106 Carbon Dioxide 27 Anion Gap 7 BUN 7 Creatinine 0.91 Est GFR ( Amer) 87.6 Est GFR (Non-Af Amer) 68.1 BUN/Creatinine Ratio 7.7 L Glucose 126 H Calcium 9.2 Total Bilirubin 0.40 AST 88 H ALT 75 H Alkaline Phosphatase 86 Total Protein 6.8 Albumin 3.8 Globulin 3.0 Albumin/Globulin Ratio 1.3 ASSESSMENT/PLAN: 42yo woman with encephalopathy secondary to lithium toxicity secondary to gastroenteritis and dehydration 1. 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 Remains off lithium 2. Bipolar disease: Per Dr. Valdez, Seroquel now at 200mg qhs. Appreciate psychiatry followup. 3. Transaminitis: I reviewed labs during acute stay and levels have fluctuated in 50-80 range. No abdominal symptoms. f/u labs next week. 4. DVT Prophylaxis: Heparin S/Q 5. Nausea/vomiting: compazine. may need Zofran. Add bowel meds for constipation. 6. Iron deficiency anemia: started on ferrous sulfate on acute service. Increase to bid. 7. Advanced directives: Not sure she is competent at this time to fill out HCP. Will ask Dr. Valdez to comment 8. Estimated LOS: interdisciplinary plan of care meeting today.
[2017-07-10] MEDS ORDERED: Senna TAB PO PRN (10:53)
--- NOTE | 2017-07-10 12:25 | PMRUTEAM ---
PMRU: Goals Current Status: Physical Therapy: Current Status Bed Mobility Assistance supervision Transfer Moblility Assistance CGA Transfer/Bed Mobility None Recommended Devices Ambulation Assistance CGA Ambulation Assistive Devices None stairs 3 steps with bilateral rails CGA Occupational Therapy: Current Status Upper Body Dressing set up Lower Body Dressing Max Asst Bathing min Assist Toileting supervision with cues Toilet Transfer supervision -Contact Guard Assist Shower Transfer Contact Guard Assist,Min Assist Eating Supervision Rec Therapy: Current Status Summary of Assessment and See RT note. Met with patient, her mother and Clinical Impression sister x45 minutes to gather information - patient responding very briefly to this bond underwriter with 1-2 words, appeared uncomfortable and anxious. Patients sister and mother were open to talking about the patient and providing this bond underwriter with information. Treatment Goals Patient will engage in recreation and leisure activities while on the unit. Treatment Plan Provide and encourage involvement in RT services. Social Work: Current Status Discharge Plan unclear at this time, pt's goal is to return home to her apartment with her boyfriend Potential for Family Training pt's sister is involved and supportive Anticipated Discharge Home Destination Anticipated Discharge pt's goal is to return home w/ boyfriend, which Destination Comment may not be safe Discharge With community and family support as needed Speech: Current Status Assessment Additional evaluation completed this session, however patient refused after 5 minutes of therapy . Ongoing evaluation required. Goals: Physical Therapy: Initial Goals Bed Mobility Assistance Independent Transfer Mobility Assistance Independent Transfer/Bed Mobility None Recommended Devices Ambulation Independent Ambulation Recommended Devices None Ambulation Distance 300 Stairs Assistance Independent Stair Recommended Devices One Rail Number of Stairs 14 Occupational Therapy: Initial Goals Goals to be Completed in (Days 10-14 ) Upper Body Bathing Routine Independent Lower Body Bathing Routine Modified Independent with Upper Body Dressing Routine Independent Lower Body Dressing Routine Modified Independent with Toilet Hygeine and Clothing Modified Independent with Management Routine Toilet Transfer Routine Modified Independent with Step-In Shower Transfer Modified Independent with Routine Tub Transfer Routine Modified Independent with Functional Transfers for ADL Modified Independent with Grooming Routine Independent Feeding Routine Independent Speech: Goals Speech Goal 1 Expressive language Goal 1 Comments LTO: To complete confrontational naming task for evaluation purposes. Speech Goal 2 Receptive Language Speech Goal 2 Comments LTO: To complete complex/abstract auditory comprehension questions for evaluation purposes. Speech Goal 3 Cognitive-linguistic Speech Goal 3 Comments LTO: To complete cognitive-linguistic tasks for evaluation purposes, with update to POC as warranted. Status: - Verbal problem solvin% - Stating simarilities/differences: 100% - Stating antonyms: patient refused - Convergent thinking: patient declined - Orientated to month, year, [place], and date; orientated to peson and location; attempted to assess orientation to circumstance, however patient demonstrated an increase in anxiety and did not answer questions regarding home life - Memory; immediate: 80% , delayed: 100% with cues Additional evaluation required; will be attempted next service date. Social Work: Goals Discharge Plan unclear at this time, pt's goal is to return home to her apartment with her boyfriend Potential for Family Training pt's sister is involved and supportive Anticipated Discharge Home Destination Anticipated Discharge pt's goal is to return home w/ boyfriend, which Destination Comment may not be safe Discharge With community and family support as needed Care Plan: Care Plan ADL's - Improve/Maintain Start: 07/09/17 00:28 Freq: QSHIFT Status: Active Target: Protocol: Activity Type Activity Date Activity User E-Sign Co-Sign Detail Recorded Client Recorded Date Recorded By Document 07/09/17 13:25 [id number] 07/09/17 13:26 [id number] 07/09/17 13:25 PMRU Outcome: ADL's/ADL Transfers Orders/Interventions Occupational Therapy Evaluation & Treatment Communication Tool in Patient Room Device Yes Address Deficits Secondary To: lithium toxicity, encephalopathy Patient to receive OT 5x/wk for 60-120 Therex min/day Self Care Management Group Therapy Neuromuscular ReEducation UE/LE ADL's with Assist Yes: Lori ADL Transfers with Assist Yes: Lori Toileting: Transfers,Clothing Management Yes: Lori ,Hygeine w/Assist Progression Toward Outcome/Goals Progressing Outcome/Goals Met Pt participated in OT evaluation with encouragement and support when increased tremors/anxiety observed. Communication-Improve/Maintain Start: 07/09/17 00:28 Freq: QSHIFT Status: Active Target: Protocol: Activity Type Activity Date Activity User E-Sign Co-Sign Detail Recorded Client Recorded Date Recorded By Document 07/10/17 02:08 [id number] 07/10/17 02:09 [id number] 07/10/17 02:08 PMRU Outcome: Communication/Cognitive Status Outcome/Goals Use Comm Tools/ Devices Makes Needs Known Effectively Other Outcomes/Goals Ongoing evaluation required to determine appropriate goals Coping/Psych-Improve/Maintain Start: 07/09/17 00:28 Freq: QSHIFT Status: Active Target: Protocol: Activity Type Activity Date Activity User E-Sign Co-Sign Detail Recorded Client Recorded Date Recorded By Document 07/10/17 02:08 [id number] 07/10/17 02:09 [id number] 07/10/17 02:08 PMRU Outcome: Coping/Psychosocial Coping Outcome/Goals Verbalization of Acceptance of Rehab Admit Utilization of Appropriate Problem Solving Techniques Willingness to Participate in Treatment Plan and Basic Needs Utilization of Available Support Systems Absence of Destructive Behavior to Self/Others Psychosocial Outcome/Goals Maintain/ Improve Emotional Health Cooperate/ Participate in Plan Progression Toward Outcome/Goals - Progressing Coping Progression Toward Outcome/Goals - Progressing Psychosocial Discharge Planning - Improve/Maintain Start: 07/09/17 00:28 Freq: QSHIFT Status: Active Target: Protocol: Activity Type Activity Date Activity User E-Sign Co-Sign Detail Recorded Client Recorded Date Recorded By Document 07/10/17 02:08 [id number] 07/10/17 02:09 [id number] 07/10/17 02:08 PMRU Outcome: Discharge Planning Update Patient Family No Outcome/Goals Demonstrates Understanding of Discharge Plan Progression Toward Outcome/Goals Progressing Education-Improve/Maintain Start: 07/09/17 00:28 Freq: QSHIFT Status: Active Target: Protocol: Activity Type Activity Date Activity User E-Sign Co-Sign Detail Recorded Client Recorded Date Recorded By Document 07/10/17 02:08 [id number] 07/10/17 02:09 [id number] 07/10/17 02:08 PMRU Outcome: Education Outcome/Goals Demonstrate/ Verbalize Understanding of Written Discharge Instructions Demonstrates Skills Encourage Questions Progression Toward Outcome/Goals Progressing /GI-Improve/Maintain Start: 07/09/17 00:28 Freq: QSHIFT Status: Active Target: Protocol: Activity Type Activity Date Activity User E-Sign Co-Sign Detail Recorded Client Recorded Date Recorded By Document 07/10/17 02:08 [id number] 07/10/17 02:09 [id number] 07/10/17 02:08 PMRU Outcome: Genitourinary/ Gastrointestinal Genitourinary- Outcome/Goals Maintain/ Achieve Urinary Continence Remain Free of Hospital- Acquired UTI Gastrointestinal-Outcome/Goals Maintain/ Achieve Bowel Regularity in Accordance with Pt's Baseline Remain Free of Emesis Prevent Constipation Laxatives as Ordered Progression Toward Outcome/Goals - Progressing Progression Toward Outcome/Goals - GI Progressing Outcome/Goals Met Comment pt up to BR Neurological- Improve/Maintain Start: 07/09/17 00:28 Freq: QSHIFT Status: Active Target: Protocol: Activity Type Activity Date Activity User E-Sign Co-Sign Detail Recorded Client Recorded Date Recorded By Document 07/10/17 02:08 [id number] [id number] 07/10/17 02:09 [id number] 07/10/17 02:08 PMRU Outcome: Neurological Weakness/Aphasia Weakness Outcome/Goals Maintain/ Achieve Baseline Neurological Status Improve Neurological Status Maintain/ Improve Strength/ROM Progression Toward Outcome/Goals Progressing Pain/Comfort- Improve/Maintain Start: 07/09/17 00:28 Freq: QSHIFT Status: Active Target: Protocol: Activity Type Activity Date Activity User E-Sign Co-Sign Detail Recorded Client Recorded Date Recorded By Document 07/10/17 02:08 [id number] 07/10/17 02:09 [id number] 07/10/17 02:08 PMRU Outcome: Pain/Comfort Outcome/Goals Demonstrates Knowledge and Use of Available Comfort Measures Achieves Acceptable Comfort/Pain Level as Determined by Patient/Condit Maintain Comfort Level Allowing Patient to Fully Participate in Rehab Progression Toward Outcome/Goals Progressing Outcome/Goals Met Comment repositioned pt Safety- Improve/Maintain Start: 07/09/17 00:28 Freq: QSHIFT Status: Active Target: Protocol: Activity Type Activity Date Activity User E-Sign Co-Sign Detail Recorded Client Recorded Date Recorded By Document 07/10/17 02:08 [id number] 07/10/17 02:09 [id number] 07/10/17 02:08 PMRU Outcome: Safety Outcome/Goals Remain Free of Injury or Harm Cooperates with Safety Measures for Least Restrictive Environment Prevent Falls/ Injury Progression Toward Outcome/Goals Progressing Outcome/Goals Met Comment Pa in place, ringing and calling out Medicine Note: Length of Stay: [5 days] Anticipated Discharge Destination: Home Tentative Discharge Date: [07/15/17] Discharged to: [home]
[2017-07-10] MEDS: Docusate CAP* 100 MG PO SCH ×2 (13:52→19:43)
[2017-07-10] MEDS: Prochlorperazine TAB* 10 MG PO PRN (16:29)
[2017-07-10] MEDS: QUEtiapine TAB* 100 MG PO SCH (21:08)
[2017-07-11] MEDS: Heparin VIAL(*) 5000 UNITS/ML VIAL (FIVE THOUSAND) SUBCUT SCH ×3 (06:22→20:47)
[2017-07-11] MEDS: Omeprazole CAP* 20 MG PO SCH (06:22)
[2017-07-11] MEDS: Docusate CAP* 100 MG PO SCH ×2 (09:45→20:46)
[2017-07-11] MEDS: Ferrous Sulfate TAB* 325 MG PO SCH ×2 (09:45→20:47)
--- NOTE | 2017-07-11 10:50 | PN ---
Progress Note - Progress Note Date of Service: 07/11/17 Note: Showing more initiative in therapy. Nursing and therapy notes reviewed. Her boyfriend who lives with her plans to visit today and she would like to see him. No chest pain, shortness of breath or abdominal pain. Poor appetite. Had some dry heaving yesterday that responded to compazine. Acetaminophen (Tylenol Adult Liq*) 650 mg PO Q6H PRN PRN Reason: FEVER/PAIN Last Admin: 07/09/17 17:29 Dose: 650 mg Docusate Sodium (Colace Cap*) 100 mg PO BID [facility] Last Admin: 07/11/17 09:45 Dose: 100 mg Ferrous Sulfate (Ferrous Sulfate Tab*) 325 mg PO BID [facility] Last Admin: 07/11/17 09:45 Dose: 325 mg Heparin Sodium (Porcine) (Heparin Vial(*)) 5,000 units SUBCUT Q8HR [facility] Last Admin: 07/11/17 06:22 Dose: 5,000 units Omeprazole (Prilosec Cap*) 20 mg PO 0600 [facility] Last Admin: 07/11/17 06:22 Dose: 20 mg Polyvinyl Alcohol (Polyvinyl Alcohol 1.4% Opth*) 1 drop BOTH EYES Q2H PRN PRN Reason: DRY EYE Last Admin: 07/08/17 16:35 Dose: 1 drop Prochlorperazine (Compazine Tab*) 10 mg PO Q6H PRN PRN Reason: NAUSEA Last Admin: 07/10/17 16:29 Dose: 10 mg Quetiapine Fumarate (Seroquel Tab*) 200 mg PO BEDTIME [facility] Last Admin: 07/10/17 21:08 Dose: 200 mg Senna (Senokot Tab*) 2 tab PO BEDTIME PRN PRN Reason: CONSTIPATION Vital Signs Temp Pulse Resp BP Pulse Ox 98.5 F 72 14 109/68 99 07/11/17 06:29 07/11/17 06:29 07/11/17 06:29 07/11/17 06:29 07/11/17 06:29 EXAM: GEN: no acute distress. alert and appropriate. LUNGS: Clear bilaterally HEART: regular rate and rhythm ABDOMEN: + bowel sounds, soft, non-tender and non-distended. NEUROLOGIC: Motor 5/5 bilateral upper and lower extremities with normal sensation. No tremor noted. ASSESSMENT/PLAN: 42yo woman with encephalopathy secondary to lithium toxicity secondary to gastroenteritis and dehydration 1. 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 Remains off lithium and seems to have resolving encephalopathy 2. Bipolar disease: Per Dr. Valdez, Seroquel now at 200mg qhs. Appreciate psychiatry followup. 3. Transaminitis: No abdominal pain but some nausea. f/u labs next week. 4. DVT Prophylaxis: Heparin S/Q 5. Nausea/vomiting: compazine. may need Zofran. Add bowel meds for constipation. 6. Iron deficiency anemia: started on ferrous sulfate on acute service. Increase to bid. 7. Advanced directives: Not sure she is competent at this time to fill out HCP. Will ask Dr. Valdez to comment 8. Estimated LOS: discussed at IPOC meeting yesterday. I advised her anticipate discharge on 07/15, Thursday.
[2017-07-11] MEDS: QUEtiapine TAB* 100 MG PO SCH (20:46)
[2017-07-12] MEDS: Heparin VIAL(*) 5000 UNITS/ML VIAL (FIVE THOUSAND) SUBCUT SCH ×3 (05:08→22:06)
[2017-07-12] MEDS: Omeprazole CAP* 20 MG PO SCH (05:09)
[2017-07-12] MEDS: Docusate CAP* 100 MG PO SCH ×2 (09:23→22:04)
[2017-07-12] MEDS: Ferrous Sulfate TAB* 325 MG PO SCH ×2 (09:23→22:04)
--- NOTE | 2017-07-12 09:48 | PN ---
Progress Note - Progress Note Date of Service: 07/12/17 Note: Nursing and therapy notes reviewed. Speech completed eval and pt showed 95% memory accurracy which improved to 100% with 1-2 repetitions. No more speech therapy planned. No chest pain, shortness of breath or abdominal pain. Ate breakfast. Less nauseated. Vital Signs Temp Pulse Resp BP Pulse Ox 97.7 F 78 18 118/70 98 07/12/17 05:06 07/12/17 05:06 07/12/17 05:06 07/12/17 05:06 07/12/17 05:06 EXAM: GEN: no acute distress. alert and appropriate. LUNGS: Clear bilaterally HEART: regular rate and rhythm ABDOMEN: + bowel sounds, soft, non-tender and non-distended. NEUROLOGIC: Motor 5/5 bilateral upper and lower extremities with normal sensation. No tremor noted. ASSESSMENT/PLAN: 42yo woman with encephalopathy secondary to lithium toxicity secondary to gastroenteritis and dehydration 1. [place] toxicity with psychomotor slowing that is improving: PT/OT. No more Speech tx. Remains off lithium. 2. Bipolar disease: Per Dr. Valdez, Seroquel now at 200mg qhs. Appreciate psychiatry followup. 3. Transaminitis: No abdominal pain but some intermittent nausea. f/u labs next week. 4. DVT Prophylaxis: Heparin S/Q 5. Nausea/vomiting: compazine prn. Bowel meds for constipation. 6. Iron deficiency anemia: ferrous sulfate bid. 7. Advanced directives: Not sure she is competent at this time to fill out HCP. Will ask Dr. Valdez to comment 8. Estimated LOS: anticipate discharge on 07/15, Thursday.
[2017-07-12] MEDS: Prochlorperazine TAB* 10 MG PO PRN (10:26)
[2017-07-12] MEDS: QUEtiapine TAB* 100 MG PO SCH (22:04)
[2017-07-13] MEDS: Omeprazole CAP* 20 MG PO SCH (05:25)
[2017-07-13] MEDS: Heparin VIAL(*) 5000 UNITS/ML VIAL (FIVE THOUSAND) SUBCUT SCH ×3 (05:26→21:03)
[2017-07-13] MEDS: Docusate CAP* 100 MG PO SCH ×2 (07:35→19:56)
[2017-07-13] MEDS: Ferrous Sulfate TAB* 325 MG PO SCH ×2 (07:35→19:56)
[2017-07-13 07:48] LABS: Albumin 3.9 g/dL (3.2-5.2); Calcium 9.8 mg/dL (8.6-10.3); EGFR African American 97.4 (>60); EGFR Non-African American 75.8 (>60); Globulin 3.2 g/dL (2-4); Potassium 4.6 mmol/L (3.5-5.0); Total Bilirubin 0.3 mg/dL (0.2-1.0); Total Protein 7.1 g/dL (6.4-8.9)
[2017-07-13 10:23] LABS: BUN/Creatinine Ratio 8.4 (8-20)
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
--- NOTE | 2017-07-13 16:10 | PN ---
Progress Note - Progress Note Date of Service: 07/13/17 Note: Sally visited. Psychiatry note read and appreciated. I also discussed case with Dr. Valdez. Therapy notes read and reviewed. Sally much impproved from last . Brighter, speech is more fluid, not nearly as tremulous. Note concerns about discharging; not sure how much can be done. Transaminases remain elevated. Current Medications Acetaminophen (Tylenol Adult Liq*) 650 mg PO Q6H PRN PRN Reason: FEVER/PAIN Last Admin: 07/09/17 17:29 Dose: 650 mg Docusate Sodium (Colace Cap*) 100 mg PO BID [facility] Last Admin: 07/13/17 07:35 Dose: 100 mg Ferrous Sulfate (Ferrous Sulfate Tab*) 325 mg PO BID [facility] Last Admin: 07/13/17 07:35 Dose: 325 mg Heparin Sodium (Porcine) (Heparin Vial(*)) 5,000 units SUBCUT Q8HR [facility] Last Admin: 07/13/17 14:02 Dose: 5,000 units Omeprazole (Prilosec Cap*) 20 mg PO 0600 [facility] Last Admin: 07/13/17 05:25 Dose: 20 mg Polyvinyl Alcohol (Polyvinyl Alcohol 1.4% Opth*) 1 drop BOTH EYES Q2H PRN PRN Reason: DRY EYE Last Admin: 07/08/17 16:35 Dose: 1 drop Prochlorperazine (Compazine Tab*) 10 mg PO Q6H PRN PRN Reason: NAUSEA Last Admin: 07/12/17 10:26 Dose: 10 mg Quetiapine Fumarate (Seroquel Xr Tab*) 200 mg PO BEDTIME [facility] Senna (Senokot Tab*) 2 tab PO BEDTIME PRN PRN Reason: CONSTIPATION Laboratory Results - last 24 hr 07/13/17 07:29 Sodium 135 Potassium 4.6 Chloride 102 Carbon Dioxide 21 L Anion Gap 12 H BUN 7 Creatinine 0.83 Est GFR ( Amer) 97.4 Est GFR (Non-Af Amer) 75.8 BUN/Creatinine Ratio 8.4 Glucose 141 H Calcium 9.8 Total Bilirubin 0.30 AST 148 H ALT 113 H Alkaline Phosphatase 85 Total Protein 7.1 Albumin 3.9 Globulin 3.2 Albumin/Globulin Ratio 1.2 Vital Signs Temp Pulse Resp BP Pulse Ox 98.4 F 87 18 109/65 99 07/13/17 05:31 07/13/17 05:31 07/13/17 05:31 07/13/17 05:31 07/13/17 05:31 EXAM: LUNGS: Clear bilat HEART: reg rhythm ABDOMEN: Soft NEUROLOGIC: Alert. Not tremulous. Muscle strength appears close to normal. Thinking much clearer. ASSESSMENT/PLAN: 1. [place] toxicity with psychomotor slowing: PT/OT. Check labs in am. 2. Bipolar disease: Per Dr. Valdez, change Seroquel to XR. Psychiatry followup as needed 3. DVT Prophylaxis: Heparin S/Q 4. Advanced directives: Not sure she is competent at this time to fill out HCP. Dr. Valdez agrees 5. Vomiting: better 6. Transaminitis: unclear source. Will check tomorrow 7. Disposition: Can alert adult protective, but not sure they can fix anything. Patient wants to go home
[2017-07-13] MEDS: QUEtiapine XR TAB* 200 MG PO SCH (19:56)
[2017-07-14] MEDS: Heparin VIAL(*) 5000 UNITS/ML VIAL (FIVE THOUSAND) SUBCUT SCH ×3 (06:15→21:07)
[2017-07-14] MEDS: Omeprazole CAP* 20 MG PO SCH (06:15)
[2017-07-14 07:59] LABS: Albumin 3.8 g/dL (3.2-5.2); Globulin 2.9 g/dL (2-4); Total Bilirubin 0.3 mg/dL (0.2-1.0); Total Protein 6.7 g/dL (6.4-8.9)
[2017-07-14] MEDS: Ferrous Sulfate TAB* 325 MG PO SCH ×2 (09:00→21:07)
[2017-07-14] MEDS: Docusate CAP* 100 MG PO SCH ×2 (09:00→21:07)
[2017-07-14 10:48] LABS: Direct Bilirubin 0.1 mg/dL (0.03-0.18); Indirect Bilirubin 0.2 mg/dL (0.3-1.0)
--- NOTE | 2017-07-14 12:23 | PMRUTEAM ---
PMRU: Goals Current Status: Nursing: Current Status Skin Deviations [NO skin Other issues] Skin Deviation Description [NO skin is benign skin issues] Physical Therapy: Current Status Bed Mobility Assistance Supervision Transfer Moblility Assistance Supervision Transfer/Bed Mobility None Recommended Devices Ambulation Assistance Supervision Ambulation Assistive Devices None Number of Feet Patient 150' Ambulated Stairs Assistance Supervision Stairs Recommended Devices One Rail Number of Stairs 20 Occupational Therapy: Current Status Upper Body Dressing Independent Lower Body Dressing Independent Lower Body Dressing Progress seated to thread pants Bathing Independent Toileting Independent Toilet Transfer Independent Shower Transfer Independent Eating Independent Instrumental ADL Pt completed light meal prep activity in OT kitchen. Able to complete hand hygiene standing at sink without assistance, able to complete item retrieval (mug from cabinet, and soup from pantry cabinet) without assistance. Pt able to open container, pour into mug, place in microwave, set time appropriately according to directions on packaging, and remove when timer was up and stir with spoon. Pt deferred eating soup she had made. Pt states she does some simple cooking at home, but that her boyfriend does most of the meal prep. Rec Therapy: Current Status Summary of Assessment and RT assessment complete and pt. is aware of RT Clinical Impression services. Pt. has been engaged in recreational activities and is open to visits. Pt. has leisure material in her room as well. Treatment Goals Patient will engage in recreation and leisure activities while on the unit. Treatment Plan Provide and encourage involvement in RT services. Social Work: Current Status Discharge Plan unclear at this time, pt's goal is to return home to her apartment with her boyfriend Potential for Family Training pt's sister is involved and supportive Anticipated Discharge Home Destination Anticipated Discharge pt's goal is to return home w/ boyfriend, which Destination Comment may not be safe Discharge With community and family support as needed Nutrition: Current Status Monitoring Pt on a regular, soft diet; intake improving to 50 -90% of meals over past 2 days (from 0-25%). eating independently. Fluid intake adequate: 120- 600 ml per meal. BMs 07/11, 07/13. Skin intact; low risk for breakdown per Johny 19. Appears to be making satisfactory progress towards goals. Speech: Current Status Assessment Patient completed ongoing evaluation of memory and time word problem tasks (verbal). Patient performed with greater than 95% accuracy; improving to 100% with 1-2 repetitions of information and/or questions, when needed, as her attention and cooperation waxed and waned. Patient has completed her cognitive-linguistic evaluation and does not warrant further skilled speech-language pathology services. Discussed results and recommendations with Precious, Occupational Therapist, as well as informed the remainder of the [facility] team. Goals: Physical Therapy: Initial Goals Bed Mobility Assistance Independent Transfer Mobility Assistance Independent Transfer/Bed Mobility None Recommended Devices Ambulation Independent Ambulation Recommended Devices None Ambulation Distance 300 Stairs Assistance Independent Stair Recommended Devices One Rail Number of Stairs 14 Physical Therapy: Updated Goals Transfer/Bed Mobility None Recommended Devices Occupational Therapy: Initial Goals Goals to be Completed in (Days 7-10 ) Upper Body Bathing Routine Independent Lower Body Bathing Routine Modified Independent with Upper Body Dressing Routine Independent Lower Body Dressing Routine Modified Independent with Toilet Hygeine and Clothing Modified Independent with Management Routine Toilet Transfer Routine Modified Independent with Step-In Shower Transfer Modified Independent with Routine Tub Transfer Routine Modified Independent with Functional Transfers for ADL Modified Independent with Grooming Routine Independent Feeding Routine Independent Nutrition: Goals Intervention Goals 1. improved po intake (>50%) w/change to REGULAR diet 2. pt will tolerate po intake without n/v or other adverse GI s/sx 3. adequate po intake to maintain hydration and lean body mass without add'l wt gain 4. regulation of bowel pattern without constipation (or diarrhea) Speech: Goals Speech Goal 1 Expressive language Goal 1 Comments LTO: To complete confrontational naming task for evaluation purposes. Status: Patient named 10/10 pictures accurately; she refused further completion of this task. Speech Goal 2 Receptive Language Speech Goal 2 Comments LTO: To complete complex/abstract auditory comprehension questions for evaluation purposes. Status: Patient completed receptive auditory comprehension questions with 100% accuracy. Speech Goal 3 Cognitive-linguistic Speech Goal 3 Comments LTO: To complete cognitive-linguistic tasks for evaluation purposes, with update to POC as warranted. Status: - Day, Date, Time of day: 100% accuracy; taken from context of conversations versus direct questioning for lessened stress. - Time management (word problems): 100% accuracy, no cues. -Memory: Immediate * 3 digits forward/backward: 100%, no cues * 4 digits forward/backward: 100% , no cues * Sentence repetition: 100%, no cues. Delayed recall * Short stories: 95% accuracy; improved to 100% with with 1-2 repetitions of information and/or questions, when needed, as her attention and cooperation waxed and waned. Social Work: Goals Discharge Plan unclear at this time, pt's goal is to return home to her apartment with her boyfriend Potential for Family Training pt's sister is involved and supportive Anticipated Discharge Home Destination Anticipated Discharge pt's goal is to return home w/ boyfriend, which Destination Comment may not be safe Discharge With community and family support as needed Care Plan: Care Plan ADL's - Improve/Maintain Start: 07/09/17 00:28 Freq: QSHIFT Status: Active Target: Protocol: Activity Type Activity Date Activity User E-Sign Co-Sign Detail Recorded Client Recorded Date Recorded By Document 07/13/17 14:12 [id number] [email or web address] 07/13/17 14:12 [id number] 07/13/17 14:12 PMRU Outcome: ADL's/ADL Transfers Orders/Interventions Occupational Therapy Evaluation & Treatment Communication Tool in Patient Room Device Yes Address Deficits Secondary To: lithium toxicity, encephalopathy Patient to receive OT 5x/wk for 60-120 Therex min/day Self Care Management Group Therapy Neuromuscular ReEducation UE/LE ADL's with Assist Yes: Lori ADL Transfers with Assist Yes: Lori Toileting: Transfers,Clothing Management Yes: Lori ,Hygeine w/Assist Progression Toward Outcome/Goals Progressing Outcome/Goals Met Able to complete ADL independently this date, able to complete IADL light meal prep task without assistance. Communication-Improve/Maintain Start: 07/09/17 00:28 Freq: QSHIFT Status: Complete Target: Protocol: Activity Type Activity Date Activity User E-Sign Co-Sign Detail Recorded Client Recorded Date Recorded By Document 07/13/17 22:00 [id number] [id number] 07/13/17 22:18 [id number] 07/13/17 22:00 PMRU Outcome: Communication/Cognitive Status Outcome/Goals Use Comm Tools/ Devices Makes Needs Known Effectively Outcome/Goals Met Use Comm Tools/ Devices Makes Needs Known Effectively Coping/Psych-Improve/Maintain Start: 07/09/17 00:28 Freq: QSHIFT Status: Active Target: Protocol: Activity Type Activity Date Activity User E-Sign Co-Sign Detail Recorded Client Recorded Date Recorded By Document 07/14/17 01:45 [id number] [id number] 07/14/17 01:45 [id number] 07/14/17 01:45 PMRU Outcome: Coping/Psychosocial Coping Outcome/Goals Verbalization of Acceptance of Rehab Admit Utilization of Appropriate Problem Solving Techniques Willingness to Participate in Treatment Plan and Basic Needs Utilization of Available Support Systems Absence of Destructive Behavior to Self/Others Psychosocial Outcome/Goals Maintain/ Improve Emotional Health Cooperate/ Participate in Plan Progression Toward Outcome/Goals - Progressing Coping Progression Toward Outcome/Goals - Progressing Psychosocial Discharge Planning - Improve/Maintain Start: 07/09/17 00:28 Freq: QSHIFT Status: Active Target: Protocol: Activity Type Activity Date Activity User E-Sign Co-Sign Detail Recorded Client Recorded Date Recorded By Document 07/14/17 01:45 [id number] [id number] 07/14/17 01:45 [id number] 07/14/17 01:45 PMRU Outcome: Discharge Planning Update Patient Family No Outcome/Goals Demonstrates Understanding of Discharge Plan Progression Toward Outcome/Goals Progressing Education-Improve/Maintain Start: 07/09/17 00:28 Freq: QSHIFT Status: Active Target: Protocol: Activity Type Activity Date Activity User E-Sign Co-Sign Detail Recorded Client Recorded Date Recorded By Document 07/14/17 01:45 [id number] [id number] 07/14/17 01:45 [id number] 07/14/17 01:45 PMRU Outcome: Education Outcome/Goals Demonstrates Skills Encourage Questions Progression Toward Outcome/Goals Progressing /GI-Improve/Maintain Start: 07/09/17 00:28 Freq: QSHIFT Status: Active Target: Protocol: Activity Type Activity Date Activity User E-Sign Co-Sign Detail Recorded Client Recorded Date Recorded By Document 07/14/17 01:45 [id number] [id number] 07/14/17 01:45 [id number] 07/14/17 01:45 PMRU Outcome: Genitourinary/ Gastrointestinal Genitourinary- Outcome/Goals Maintain/ Achieve Urinary Continence Remain Free of Hospital- Acquired UTI Gastrointestinal-Outcome/Goals Maintain/ Achieve Bowel Regularity in Accordance with Pt's Baseline Remain Free of Emesis Prevent Constipation Laxatives as Ordered Progression Toward Outcome/Goals - Progressing Progression Toward Outcome/Goals - GI Progressing Outcome/Goals Met Comment pt up to BR Mobility- Improve/Maintain Start: 07/09/17 00:28 Freq: QSHIFT Status: Active Target: Protocol: Activity Type Activity Date Activity User E-Sign Co-Sign Detail Recorded Client Recorded Date Recorded By Document 07/13/17 12:25 [id number] 07/13/17 12:25 [id number] 07/13/17 12:25 PMRU Outcome: Mobility Physical Therapy Evaluation and Yes Treatment Activity OOB with Assistance Yes WBAT Yes Device Yes Assistance Yes Patient to be seen 5x/wk for 60-120 min/ Therex day for: Mobility Training Gait Training W/C Mobility Balance Outcome/Goals Maintain/ Achieve Baseline Mobility Status Improve Mobility Status Demonstrates Proper Use of Assistive Devices Free from Complications of Immobility Progression Toward Outcome/Goals Progressing Bed Mobility Yes: independent Transfers Yes: independent Gait x ft Yes: independent to 300' Up/Down Stairs Yes: independent up/ down 12 stairs. Neurological- Improve/Maintain Start: 07/09/17 00:28 Freq: QSHIFT Status: Active Target: Protocol: Activity Type Activity Date Activity User E-Sign Co-Sign Detail Recorded Client Recorded Date Recorded By Document 07/14/17 01:45 [id number] [id number] 07/14/17 01:45 [id number] 07/14/17 01:45 PMRU Outcome: Neurological Weakness/Aphasia Weakness Weakness/Aphasia Comment weakness much improved Outcome/Goals Maintain/ Achieve Baseline Neurological Status Improve Neurological Status Maintain/ Improve Strength/ROM Progression Toward Outcome/Goals Progressing Pain/Comfort- Improve/Maintain Start: 07/09/17 00:28 Freq: QSHIFT Status: Active Target: Protocol: Activity Type Activity Date Activity User E-Sign Co-Sign Detail Recorded Client Recorded Date Recorded By Document 07/14/17 01:45 [id number] [id number] 07/14/17 01:45 [id number] 07/14/17 01:45 PMRU Outcome: Pain/Comfort Outcome/Goals Demonstrates Knowledge and Use of Available Comfort Measures Achieves Acceptable Comfort/Pain Level as Determined by Patient/Condit Maintain Comfort Level Allowing Patient to Fully Participate in Rehab Progression Toward Outcome/Goals Progressing Outcome/Goals Met Comment denies pain at this time Safety- Improve/Maintain Start: 07/09/17 00:28 Freq: QSHIFT Status: Active Target: Protocol: Activity Type Activity Date Activity User E-Sign Co-Sign Detail Recorded Client Recorded Date Recorded By Document 07/14/17 01:45 [id number] [id number] 07/14/17 01:45 [id number] 07/14/17 01:45 PMRU Outcome: Safety Outcome/Goals Remain Free of Injury or Harm Cooperates with Safety Measures for Least Restrictive Environment Prevent Falls/ Injury Progression Toward Outcome/Goals Progressing Outcome/Goals Met Comment PA in place, ringing appropriately Medicine Note: Length of Stay: 1 day Anticipated Discharge Destination: Home Tentative Discharge Date: 07/15/17 Discharged to: home
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
--- NOTE | 2017-07-14 15:55 | PN ---
Progress Note - Progress Note Date of Service: 07/14/17 Note: Sally visited. She was discussed in interdisciplinary team rounds. She is ready for discharge. Psychiatry note read and appreciated. Sally insists on going home over the objections of her sister. Will remain off lithium. Transaminases going down. Current Medications Acetaminophen (Tylenol Adult Liq*) 650 mg PO Q6H PRN PRN Reason: FEVER/PAIN Last Admin: 07/09/17 17:29 Dose: 650 mg Docusate Sodium (Colace Cap*) 100 mg PO BID [facility] Last Admin: 07/14/17 09:00 Dose: 100 mg Ferrous Sulfate (Ferrous Sulfate Tab*) 325 mg PO BID [facility] Last Admin: 07/14/17 09:00 Dose: 325 mg Heparin Sodium (Porcine) (Heparin Vial(*)) 5,000 units SUBCUT Q8HR [facility] Last Admin: 07/14/17 14:29 Dose: 5,000 units Omeprazole (Prilosec Cap*) 20 mg PO 0600 [facility] Last Admin: 07/14/17 06:15 Dose: 20 mg Polyvinyl Alcohol (Polyvinyl Alcohol 1.4% Opth*) 1 drop BOTH EYES Q2H PRN PRN Reason: DRY EYE Last Admin: 07/08/17 16:35 Dose: 1 drop Prochlorperazine (Compazine Tab*) 10 mg PO Q6H PRN PRN Reason: NAUSEA Last Admin: 07/12/17 10:26 Dose: 10 mg Quetiapine Fumarate (Seroquel Xr Tab*) 200 mg PO BEDTIME [facility] Last Admin: 07/13/17 19:56 Dose: 200 mg Senna (Senokot Tab*) 2 tab PO BEDTIME PRN PRN Reason: CONSTIPATION Laboratory Results - last 24 hr 07/14/17 07:15 Total Bilirubin 0.30 Direct Bilirubin 0.10 Indirect Bilirubin 0.2 L AST 117 H ALT 109 H Alkaline Phosphatase 81 Total Protein 6.7 Albumin 3.8 Globulin 2.9 Albumin/Globulin Ratio 1.3 Vital Signs Temp Pulse Resp BP Pulse Ox 98.7 F 110 18 136/85 100 07/14/17 15:27 07/14/17 15:19 07/14/17 15:38 07/14/17 15:19 07/14/17 15:38 EXAM: LUNGS: Clear bilat HEART: reg rhythm ABDOMEN: Soft NEUROLOGIC: Alert. Not tremulous. Muscle strength appears close to normal. Thinking much clearer. ASSESSMENT/PLAN: 1. [place] toxicity with psychomotor slowing: PT/OT. Check labs in am. 2. Bipolar disease: Per Dr. Valdez, changed Seroquel to XR. Psychiatry followup as outpatient 3. DVT Prophylaxis: Heparin S/Q 4. Advanced directives: Not sure she is competent at this time to fill out HCP. Dr. Valdez agrees 5. Vomiting: better 6. Transaminitis: unclear source. Will check tomorrow 7. Disposition: SW Contacted adult protective, but not sure they can change anything as Sally is unwilling to change. Patient wants to go home
[2017-07-14] MEDS: QUEtiapine XR TAB* 200 MG PO SCH (21:07)
[2017-07-15] MEDS: Omeprazole CAP* 20 MG PO SCH (06:09)
[2017-07-15] MEDS: Heparin VIAL(*) 5000 UNITS/ML VIAL (FIVE THOUSAND) SUBCUT SCH (06:09)
[2017-07-15 06:55] VITALS: BP 110/75
[2017-07-15] MEDS: Docusate CAP* 100 MG PO SCH (08:10)
[2017-07-15] MEDS: Ferrous Sulfate TAB* 325 MG PO SCH (08:10)
--- NOTE | 2017-07-16 19:05 | DS ---
CC: Dr. Loving, [facility]; Dr. Elmore. PAIN CLINIC DISCHARGE SUMMARY: DATE OF ADMISSION: 07/08/17 DATE OF DISCHARGE: 07/15/17 DISCHARGE DIAGNOSES: 1. [place] toxicity with psychomotor slowing. 2. 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 3. Bipolar disease. HISTORY OF ILLNESS AND HOSPITAL COURSE: For complete history of the events leading up to her rehab s yogesh, please see the history and physical dictated by me on 07/08/17. While on the rehab unit, the jg fay did have followup from Psychiatry and Dr. Valdez. She was given Seroquel at night. Her Seroque l dose was increased by Dr. Valdez. At the time of discharge, she was on 200 mg at bedtime. She was changed to the long-acting type of Seroquel, Seroquel XR prior to discharge. The patient's blood wor k showed a slight elevation in her transaminases which was declining at the time of discharge and had not yet normalized. The patient's BUN and creatinine were stable. The patient was otherwise medica lly stable. Her cognition improved while on the rehab unit. She was tremulous at the time of admiss ion and not improved. She was maintained on heparin for DVT prophylaxis. The patient was seen by [facility] and made good gains with both disciplines. She was also seen by Speech Therapy and made gains there as well. With physical therapy at the time of admission, the ayaka vazquez transferred with contact guard. She was able to ambulate 300 feet with contact guard. With occ upational therapy, she was min assist for upper body dressing and max assist for lower body dressing. On admission, she was contact guard for transfers and min assist for toileting. By the time of dis charge, she was independently ambulating 1000 feet. She was going up and down stairs. She was indep endent in all of her activities of daily living. The patient was also seen by Speech Therapy while o n the rehab unit. She was able to express her wants and needs on admission. The patient was able to be discharged from Speech Therapy because she has achieved her baseline cognition. The patient was discharged home on 07/15/17. DISCHARGE DIET: Regular. DISCHARGE MEDICATIONS: 1. Prilosec 20 mg daily. 2. Seroquel XR 200 mg at bedtime. 3. Artificial tears 1 drop to both eyes as needed. SERVICES AFTER DISCHARGE: Through visiting nurse service, she will have home physical therapy. She will also follow up with the [facility] as well as Dr. Loving, her psychia trist. She can also follow up with her primary care doctor, Dr. Elmore. [id number]/[facility] #: [id number]
== END 2017-07-15 12:00 | disposition home or self-care (01) | DRG 945 ==
LOC: PMRU 14:07
PROVIDERS: ADMIT Physical Medicine & Rehabilitation; ATTEND Physical Medicine & Rehabilitation
PROC: F07Z5ZZ Bed Mobility Treatment (ICD-10-PCS; principal; 2017-07-08)
PROC: F07Z9ZZ Gait Training/Functional Ambulation Treatment (ICD-10-PCS; 2017-07-08)
PROC: F07Z8ZZ Transfer Training Treatment (ICD-10-PCS; 2017-07-08)
PROC: F08Z0ZZ Bathing/Showering Techniques Treatment (ICD-10-PCS; 2017-07-08)
PROC: F08Z1ZZ Dressing Techniques Treatment (ICD-10-PCS; 2017-07-08)
PROC: F08Z3ZZ Feeding/Eating Treatment (ICD-10-PCS; 2017-07-08)
PROC: F06Z6ZZ Communicative/Cognitive Integration Skills Treatment (ICD-10-PCS; 2017-07-08)
DX: R53.1 Weakness (principal); G92 Toxic encephalopathy; F31.9 Bipolar disorder, unspecified; T43.595A Adverse effect of other antipsychotics and neuroleptics, initial encounter; Y92.9 Unspecified place or not applicable; Z79.899 Other long term (current) drug therapy; R74.0 Nonspecific elevation of levels of transaminase and lactic acid dehydrogenase [LDH]
CPT/HCPCS: 36415; 80053; 80076; 85025; A9270-GY; J1644; Q0164

== ENCOUNTER 2017-11-05 05:14 | Emergency (ER) | payer MEDICARE, MEDICAID ==
[2017-11-05] MEDS ORDERED: diPHENhydraMINE IV* 50 MG/ML 1 ml VIAL (BENADRYL) ONE (05:35)
[2017-11-05] MEDS ORDERED: Haloperidol INJ IV/IM* 5 MG/ML AMP ONE (05:35)
[2017-11-05] MEDS ORDERED: LORazepam INJ* 2 MG/ML 1 ML VIAL ONE (05:35)
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
[2017-11-05 06:58] LABS: EGFR Non-African American 63.3 (>60)
[2017-11-05 07:09] LABS: Hematocrit 33 % (35-47); Hemoglobin 10.7 g/dl (12.0-16.0); Mean Corpuscular HGB Conc 33 g/dl (31-36); Mean Corpuscular Hemoglobin 24 pg (27-31); Mean Corpuscular Volume 74 fL (80-97); Mean Platelet Volume 8 um3 (7.4-10.4); Platelet Count 263 10^3/ul (150-450); Red Blood Count 4.43 10^6/ul (4.0-5.4); Red Cell Distribution Width 17 % (10.5-15); White Blood Count 8.8 10^3/ul (3.5-10.8)
[2017-11-05 07:58] LABS: ABS Basophils 0.1 10^3/ul (0-0.2); ABS Eosinophils 0.2 10^3/ul (0-0.6); ABS Lymphocytes 1.8 10^3/ul (1.0-4.8); ABS Monocytes 0.5 10^3/ul (0-0.8); ABS Neutrophils 6.2 10^3/ul (1.5-7.7); ABS Nucleated RBC 0 10^3/ul; Lymphocyte % 20.6 % (25-47); Nucleated Red Blood Cells % 0
[2017-11-05 08:08] LABS: Urine Appearance Cloudy; Urine Blood 2+ (Negative); Urine Color Yellow; Urine Ketones Negative (Negative); Urine Protein Negative (Negative); Urine Specific Gravity 1.017 (1.010-1.030); Urine Urobilinogen Negative (Negative)
[2017-11-05] MEDS ORDERED: hydrOXYzine HCL TAB* 50 MG PO ONE (17:12)
--- NOTE | 2017-11-05 18:38 | ED ---
Aston Diaz Angela, scribed for Zay Ruib MD on 11/05/17 at 1831 . Progress - Progress Note Progress Note: This pt was signed out by Dr. Dong, pending disposition, awaiting MHE. Pt was evaluated by the mental health seo specialist and her case was reviewed by Dr. Valdez. Dr. Valdez recommends to discharge the pt home with outpatient follow up at [facility]. Pt will be discharged to home, in stable condition, with a diagnosis of bipolar disorder. Condition: Stable Disposition: Home Course/Dx - Diagnoses Provider Diagnoses: Bipolar 1 disorder The documentation as recorded by the Aston rosenbaum Angela accurately reflects the service I personally performed and the decisions made by Greyson benavides Walter, MD.
[2017-11-05] MEDS ORDERED: Sertraline* 100 MG TAB PO ONE (20:37)
[2017-11-07 17:07] VITALS: BP 132/88
== END 2017-11-07 17:04 ==
LOC: ED 05:14
DX: F31.9 Bipolar disorder, unspecified (principal); Z87.891 Personal history of nicotine dependence; Z88.8 Allergy status to other drugs, medicaments and biological substances
CPT/HCPCS: 36415; 80053; 80307; 80320; 80329; 81003; 81015; 84443; 84702; 85025; 87086; 96374; 96375; 99285; A9270-GY; G0480; J1200; J1630; J2060

== ENCOUNTER 2018-01-31 02:03 | Emergency (ER) | payer MEDICARE, MEDICAID ==
[2018-01-31] MEDS ORDERED: LORazepam TAB(*) 1 MG SL ONE (02:05)
[2018-01-31] MEDS ORDERED: Diazepam TAB(*) 5 MG PO ONE (02:18)
[2018-01-31 03:15] VITALS: BP 108/47
--- NOTE | 2018-01-31 03:22 | ED ---
Chip Diaz Elizabeth, scribed for Dakota Reyes MD on 01/31/18 at 0210 . Psychiatric Complaint - HPI Summary HPI Summary: This patient is a 42 year old F BIBA to [facility] with a chief complaint of anxiety since earlier tonight. Patient denies being anxious about any specific thing or any stressors. Symptoms aggravated by nothing. Symptoms alleviated by nothing. Patient reports tremors and chest tightness. The patient has been taking Zyprexa , and Hydroxyzine for a few months, which she reports have helped her anxiety. She reports that she took her medications approximately 1 hour ago. The patient lives alone in her apartment - History Of Current Complaint Hx Obtained From: Patient Hx Last Menstrual Period: mid july Onset/Duration: Gradual Onset, Lasting Hours, Still Present Timing: Constant Severity Initially: Mild Severity Currently: Moderate Character: Anxious Aggravating Factor(s): Nothing Alleviating Factor(s): Nothing - Allergies/Home Medications Allergies/Adverse Reactions: Allergies Allergy/AdvReac Type Severity Reaction Status Date / Time No Known Allergies Allergy Verified 01/31/18 02:19 Home Medications: Home Medications OLANzapine TAB* [Zyprexa 10 MG TAB*] 10 mg PO DAILY 01/31/18 [History Confirmed 01/31/18] PMH/Surg Hx/FS Hx/Imm Hx Endocrine/Hematology History: Reports: Hx Anemia Denies: Hx Diabetes, Hx Thyroid Disease Cardiovascular History: Denies: Hx Hypertension Respiratory History: Denies: Hx Asthma, Hx Chronic Obstructive Pulmonary Disease (COPD) GI History: Denies: Hx Ulcer History: Reports: Other Problems/Disorders - frequent UTIs Denies: Hx Acute Renal Failure - damage d/t lithium toxicity Musculoskeletal History: Denies: Hx Scoliosis Sensory History: Reports: Hx Contacts or Glasses Denies: Hx Hearing Aid Opthamlomology History: Reports: Hx Contacts or Glasses Neurological History: Denies: Hx Headaches Psychiatric History: Reports: Hx Anxiety, Hx Inpatient Treatment, Hx Community Mental Health Tx, Hx Bipolar Disorder Denies: Hx Eating Disorder, Hx of Violent Episodes Against Others, Other Psychiatric Issues/Disorders - Surgical History Surgery Procedure, Year, and Place: TUBAL LIGATION. CHOLECYSTECTOMY - Immunization History Date of Tetanus Vaccine: UTD per pt Infectious Disease History: Reports: History Other Infectious Disease - genital herpes Denies: Hx Clostridium Difficile, Hx Hepatitis, Hx Human Immunodeficiency Virus (HIV), Hx of Known/Suspected MRSA, Hx Shingles, Hx Tuberculosis, Hx Known/ Suspected VRE, Hx Known/Suspected VRSA - Family History Known Family History: Positive: Hypertension - Social History Alcohol Use: None Substance Use Type: Reports: None Smoking Status (MU): Former Smoker Have You Smoked in the Last Year: No Review of Systems Negative: Fever Negative: Epistaxis Musculoskeletal: Other - tremors Positive: Anxious All Other Systems Reviewed And Are Negative: Yes Physical Exam - Summary Physical Exam Summary: Appearance: Well-appearing, Well-nourished, lying in bed comfortably Skin: Warm, dry, no obvious rash Eyes: sclera anicteric, no conjunctival pallor ENT: mucous membranes moist, pharynx appears normal Neck: Supple, nontender Respiratory: Clear to auscultation, no signs of respiratory distress Cardiovascular: Normal S1, S2. No murmurs. Normal distal pulses in tibial and radial bilaterally. Abdomen: Soft, nontender, normal active bowel sounds present Musculoskeletal: Strength/ROM Intact. Tremulous Neurological: A&Ox3, awake and alert, mentation is normal, speech is fluent and appropriate Psychiatric: affect is normal, obviously very anxious. No hallucinations or delusions. Thought process seems okay Triage Information Reviewed: Yes Vital Signs On Initial Exam: Initial Vitals Temp Pulse Resp BP Pulse Ox 36.7 C 88 22 174/100 98 01/31/18 02:06 01/31/18 02:06 01/31/18 02:06 01/31/18 02:06 01/31/18 02:06 Vital Signs Reviewed: Yes Diagnostics - Vital Signs Vital Signs Temp Pulse Resp BP Pulse Ox 01/31/18 03:08 71 108/47 98 01/31/18 03:00 63 97 01/31/18 02:39 85 158/81 98 01/31/18 02:11 16 01/31/18 02:08 91 98 01/31/18 02:06 36.7 C 88 22 174/100 98 - Laboratory Lab Statement: Any lab studies that have been ordered have been reviewed, and results considered in the medical decision making process. Course/Dx - Differential Dx/Clinical Impression Provider Diagnosis: Anxiety Discharge - Sign-Out/Discharge Documenting (check all that apply): Discharge/Admit/Transfer - Discharge Plan Condition: Improved Disposition: HOME Patient Education Materials: Generalized Anxiety Disorder (ED) Referrals: Diana Elmore MD [Primary Care Provider] - - Billing Disposition and Condition Condition: IMPROVED Disposition: HOME The documentation as recorded by the Chip rosenbaum Elizabeth accurately reflects the service I personally performed and the decisions made by me, Dakota Reyes MD.
== END 2018-01-31 03:30 | disposition home or self-care (01) ==
LOC: ED 02:03
DX: F41.9 Anxiety disorder, unspecified (principal); Z87.891 Personal history of nicotine dependence
CPT/HCPCS: 99282; A9270-GY

== ENCOUNTER 2018-08-28 09:22 | Emergency (ER) | payer MEDICARE, MEDICAID ==
[2018-08-28 09:35] VITALS: BP 118/68
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
[2018-08-29 11:40] LABS: Hepatitis C Antibody Nonreactive (Nonreactive)
--- NOTE | 2018-08-30 07:27 | UC ---
- Progress Note Progress Note: PLS CALL PT AND ADVISE SWAB POSITIVE FOR BV. METRONIDAZOLE SENT TO [facility] IN [place]. NO ETOH WHILE ON THIS MEDICATION. F/U PCP IF NEEDED. - ROSCOE KAPOOR MD Course/Dx - Diagnoses Provider Diagnoses: Abnormal vaginal bleeding Discharge - Sign-Out/Discharge Documenting (check all that apply): Post-Discharge Follow Up All imaging exams completed and their final reports reviewed: No Studies - Discharge Plan Condition: Good Disposition: HOME Prescriptions: metroNIDAZOLE [Flagyl 500 MG TAB] 500 mg PO BID #14 tab Patient Education Materials: Dysfunctional Uterine Bleeding (ED) Referrals: Diana Elmore MD [Medical Doctor] - Additional Instructions: Please follow up with your primary care doctor about the vaginal bleeding. Today your test was negative, we always check this regardless of control method. You may need a pap smear or other imaging for this. Your urine was sent to check for bacteria since you felt pelvic pressure. If you develop fever or worsening symptoms please return. - Billing Disposition and Condition Condition: GOOD Disposition: Home
== END 2018-08-28 10:47 | disposition home or self-care (01) ==
LOC: UCEAST 09:22
DX: N93.9 Abnormal uterine and vaginal bleeding, unspecified (principal); F31.9 Bipolar disorder, unspecified; Z79.899 Other long term (current) drug therapy; Z87.891 Personal history of nicotine dependence
CPT/HCPCS: 36415; 84702; 86703; 86803; 87086; 87480; 87491; 87510; 87591; 87660; 99212; G0463

== ENCOUNTER 2018-09-03 00:36 | Emergency (ER) | payer MEDICARE, MEDICAID ==
[2018-09-03] MEDS ORDERED: Cephalexin CAP* 500 MG PO ONE (02:51)
[2018-09-03] MEDS ORDERED: Sulfamethox/Trimethoprim DS 800/160* TAB PO ONE (02:51)
--- NOTE | 2018-09-03 02:51 | ED ---
Skin Complaint - HPI Summary HPI Summary: This patient is a 43 year old F presenting to [facility] with a chief complaint of an abscess on her right groin and upper thigh since 2 days ago. The patient rates the pain 8/10 in severity. Patient reports fatigue and a rash on the groin and hips. Patient denies fever. The patient states, I have this rash, I m not a drug user. She is currently being treated for bacterial vaginosis. RX Flagyl. - History of Current Complaint Chief Complaint: EDRashSkinAbscess Time Seen by Provider: 09/03/18 02:41 Stated Complaint: GENERAL ILLNESS Hx Obtained From: Patient Hx Last Menstrual Period: 08/09/18 Onset/Duration: Started Days Ago - 2 Timing: Constant Current Severity: Severe Pain Intensity: 8 Pain Scale Used: 0-10 Numeric Skin Location: Discrete - groin, upper thighs Character: Pain, Redness Aggravating Symptom(s): Clothing, Touch Associated Signs & Symptoms: Rash, Tenderness - Additional Pertinent History Primary Care Physician: EDWIN - Allergy/Home Medications Allergies/Adverse Reactions: Allergies Allergy/AdvReac Type Severity Reaction Status Date / Time No Known Allergies Allergy Verified 09/03/18 00:50 PMH/Surg Hx/FS Hx/Imm Hx Endocrine/Hematology History: Reports: Hx Anemia Denies: Hx Diabetes, Hx Thyroid Disease Cardiovascular History: Denies: Hx Hypertension Respiratory History: Denies: Hx Asthma, Hx Chronic Obstructive Pulmonary Disease (COPD) GI History: Denies: Hx Ulcer History: Reports: Other Problems/Disorders - frequent UTIs Denies: Hx Acute Renal Failure - damage d/t lithium toxicity Musculoskeletal History: Denies: Hx Scoliosis Sensory History: Reports: Hx Contacts or Glasses Denies: Hx Hearing Aid Opthamlomology History: Reports: Hx Contacts or Glasses Neurological History: Denies: Hx Headaches Psychiatric History: Reports: Hx Anxiety, Hx Inpatient Treatment, Hx Community Mental Health Tx, Hx Bipolar Disorder Denies: Hx Eating Disorder, Hx of Violent Episodes Against Others, Other Psychiatric Issues/Disorders - Surgical History Surgery Procedure, Year, and Place: TUBAL LIGATION. CHOLECYSTECTOMY - Immunization History Date of Tetanus Vaccine: UTD per pt Infectious Disease History: No Infectious Disease History: Reports: History Other Infectious Disease - genital herpes Denies: Hx Clostridium Difficile, Hx Hepatitis, Hx Human Immunodeficiency Virus (HIV), Hx of Known/Suspected MRSA, Hx Shingles, Hx Tuberculosis, Hx Known/ Suspected VRE, Hx Known/Suspected VRSA, Traveled Outside the [place] in Last 30 Days - Family History Known Family History: Positive: Hypertension - Social History Alcohol Use: None Substance Use Type: Reports: None Smoking Status (MU): Former Smoker Have You Smoked in the Last Year: No Review of Systems Positive: Fatigue. Negative: Fever Positive: Rash - groin All Other Systems Reviewed And Are Negative: Yes Physical Exam - Summary Physical Exam Summary: Appearance: Well-appearing, Well-nourished, lying in bed comfortably Skin: There is an area of cellulitis on the proximal, medial, anterior thigh with central induration. A bedside screening US does not disclose any discrete fluid collection. Eyes: sclera anicteric, no conjunctival pallor ENT: mucous membranes moist, pharynx appears normal Neck: Supple, nontender Respiratory: Clear to auscultation, no signs of respiratory distress Cardiovascular: Normal S1, S2. No murmurs. Normal distal pulses in tibial and radial bilaterally. Abdomen: Soft, nontender, normal active bowel sounds present Musculoskeletal: Normal, Strength/ROM Intact Neurological: A&Ox3, awake and alert, mentation is normal, speech is fluent and appropriate Psychiatric: affect is normal, does not appear anxious or depressed Triage Information Reviewed: Yes Vital Signs On Initial Exam: Initial Vitals Temp Pulse Resp BP Pulse Ox 98.6 F 95 16 142/84 100 09/03/18 00:45 09/03/18 00:45 09/03/18 00:45 09/03/18 00:45 09/03/18 00:45 Vital Signs Reviewed: Yes Diagnostics - Vital Signs Vital Signs Temp Pulse Resp BP Pulse Ox 09/03/18 00:45 98.6 F 95 16 142/84 100 - Laboratory Result Diagrams: 09/03/18 02:53 09/03/18 02:55 Lab Statement: Any lab studies that have been ordered have been reviewed, and results considered in the medical decision making process. Course/Dx - Course Course Of Treatment: This patient is a 43 year old F presenting to [facility] with a chief complaint of an abscess on her right groin and upper thigh since 2 days ago. The patient rates the pain 8/10 in severity. Patient reports fatigue and a rash on the groin and hips. Patient denies fever. Bedside screening ultrasonography did not show a significant fluid collection to be drained in this infection. Test results with no significant abnormalities. In the ED course the patient was given Cephalexin, Ibuprofen and Sulfamethox. Patient will be discharged with prescription for Sulfamethox and follow up from Dr. Perez. The patient is agreeable with this plan. - Differential Diagnoses - Skin Complaint Differential Diagnoses: Cellulitis - Diagnoses Provider Diagnoses: Cellulitis Discharge - Sign-Out/Discharge Documenting (check all that apply): Patient Departure - discharge - Discharge Plan Condition: Good Disposition: HOME Prescriptions: Sulfamethox/Trimethoprim DS* [Bactrim DS 800/160 TAB*] 1 tab PO BID #20 tab Patient Education Materials: Cellulitis (ED) Referrals: Thomas Perez MD [Medical Doctor] - Additional Instructions: Take the antibiotics as prescribed, and monitor the area of redness and swelling. I expect it to start improving over the next 1-2 days. If it is not , or if it is worsening, he may be developing into an abscess. So if this happens, he would need to see the general surgeon whose contact information I have given you. They would generally be able to drain any abscess collection in the office. - Billing Disposition and Condition Condition: GOOD Disposition: Home - Attestation Statements Document Initiated by Lucina: Yes Documenting Minoibe: Mauro Kenny Provider For Whom Lucina is Documenting (Include Credential): Dakota Reyes MD Scribe Attestation: Mauro Diaz, scribed for Dakota Reyes MD on 09/03/18 at 0656. Scribe Documentation Reviewed: Yes Provider Attestation: The documentation as recorded by the Mauro rosenbaum accurately reflects the service I personally performed and the decisions made by , Dakota Reyes MD Status of Scribe Document: Viewed
[2018-09-03 03:05] LABS: ABS Basophils 0.1 10^3/ul (0-0.2); ABS Eosinophils 0.1 10^3/ul (0-0.6); ABS Lymphocytes 1.9 10^3/ul (1.0-4.8); ABS Monocytes 0.6 10^3/ul (0-0.8); ABS Neutrophils 6.8 10^3/ul (1.5-7.7); ABS Nucleated RBC 0 10^3/ul; Eosinophil % 0.9 %; Hematocrit 40 % (35-47); Hemoglobin 13.1 g/dl (12.0-16.0); Lymphocyte % 19.9 %; Mean Corpuscular HGB Conc 33 g/dl (31-36); Mean Corpuscular Hemoglobin 27 pg (27-31); Mean Corpuscular Volume 82 fL (80-97); Mean Platelet Volume 8.1 fL (7.4-10.4); Nucleated Red Blood Cells % 0; Platelet Count 325 10^3/ul (150-450); Red Blood Count 4.88 10^6/ul (4.00-5.40); Red Cell Distribution Width 15 % (10.5-15); White Blood Count 9.4 10^3/ul (3.5-10.8)
[2018-09-03 03:20] LABS: Anion Gap 8 mmol/L (2-11); BUN/Creatinine Ratio 10.8 (8-20); Blood Urea Nitrogen 10 mg/dL (6-24); CO2 Carbon Dioxide 25 mmol/L (22-32); Chloride 103 mmol/L (101-111); EGFR Non-African American 66.1 (>60); Glucose 113 mg/dL (70-100); Potassium 3.7 mmol/L (3.5-5.0); Sodium 136 mmol/L (135-145)
[2018-09-03 03:28] LABS: HCG Pregnancy < 0.60 mIU/mL
[2018-09-03] MEDS ORDERED: Ibuprofen TAB* 400 MG PO ONE (03:32)
[2018-09-03 03:57] VITALS: BP 142/79
== END 2018-09-03 03:30 | disposition home or self-care (01) ==
LOC: ED 00:36
DX: L03.90 Cellulitis, unspecified (principal); R21 Rash and other nonspecific skin eruption; Z87.891 Personal history of nicotine dependence; R53.83 Other fatigue
CPT/HCPCS: 36415; 80048; 84702; 85025; 99282; A9270-GY